=== PATIENT | male | born 1995 | race African-American/Black ===

== ENCOUNTER 2017-02-22 16:41 | Inpatient (IN) | payer MEDICAID ==
[~2017-02-22] VITALS: Ht 172.7 cm; Wt 68.1 kg
[2017-02-22 16:44] VITALS: BP 127/77; PULSE 128; RESP 20; TEMP 98.9; O2SAT 99
--- NOTE | 2017-02-22 17:34 | PD ---
HPI Chief Complaint: Psychiatric Symptoms Time Seen by Provider: 17:18 Travel History International Travel<30 days: No Contact w/Intl Traveler<30days: No Traveled to known affect area: No History of Present Illness HPI 21 yr male presents to emergency department with his mother stating that "he was healed of his diabetes". Mother states that patient threw away his glucose pump yesterday because he is healed. Patient states that the pump was broken and subsequently threw this away. Patient was reluctant to answer any of my questions. Apparently patient was admitted for DKA February 06 at [facility]. Patient has followed up with his front edger, Dr. Barrow since then. Patient denies fever, chills, chest pain, short of breath , abdominal pain, nausea, vomiting, diarrhea. Patient says "he feels fine" and would like to leave. PFSH Past Medical History Diabetes: Yes Social History Tobacco Use: No Allergies-Medications (Allergen,Severity, Reaction): Coded Allergies: No Known Allergies (Verified Allergy, Unknown, 02/22/17) Reported Meds & Prescriptions Reported Meds & Active Scripts Active Reported Prilosec (Omeprazole Magnesium) 10 Mg Pow Unknown Dose PO DAILY PRN Sulfasalazine 500 Mg Tab 500 Mg PO DAILY [Novolog] Unit SQ Review of Systems Except as stated in HPI: all other systems reviewed are Neg Physical Exam Narrative GENERAL: Well-nourished, well-developed patient. Mildly diaphoretic SKIN: Focused skin assessment warm/dry. HEAD: Normocephalic. EYES: No scleral icterus. No injection or drainage. NECK: Supple, trachea midline. No JVD. MUSCULOSKELETAL: No cyanosis, or edema. BACK: Nontender without obvious deformity. No CVA tenderness. PSYCHIATRIC: Patient claims they got spoke to him and told him that he no longer has diabetes. Mother states that patient has been making unusual remarks. Patient reluctant to allow any care from the hospital. Data Data Last Documented VS Vital Signs Date Time Temp Pulse Resp B/P (MAP) Pulse Ox O2 Delivery O2 Flow Rate FiO2 02/22/17 19:32 98.6 118 17 125/68 (87) 98 Room Air Orders Orders Rubber Press Tender / Telemetry [email or web address].Q8H (02/22/17 17:26) ^ Insert Iv (02/22/17 17:26) Diet Npo (02/22/17 Dinner) Complete Blood Count With Diff (02/22/17 17:26) Comprehensive Metabolic Panel (02/22/17 17:26) Beta Hydroxybutyrate (Acetone) (02/22/17 17:26) Hemoglobin (Hgb) A1c (02/22/17 17:26) Urinalysis - C+S If Indicated (02/22/17 17:26) Psych Screen (02/22/17 17:32) Restraints Non-Violent JAYME.Q3H (02/22/17 17:58) Blood Glucose (02/22/17 18:52) Rubber Press Tender / Telemetry [email or web address] (02/22/17 18:55) ^ Insert Iv (02/22/17 18:55) Magnesium (Mg) (02/22/17 18:55) Phosphorus (Po4) (02/22/17 18:55) Insulin Regular (Iv Infusion) (Novolin R (02/22/17 19:00) Potassium Chlor 20 Meq Premix (Kcl 20 Me (02/22/17 19:00) Potassium Chlor 20 Meq Premix (Kcl 20 Me (02/22/17 19:00) Potassium Chlor 20 Meq Premix (Kcl 20 Me (02/22/17 19:00) Potassium Chlor 20 Meq Premix (Kcl 20 Me (02/22/17 19:00) Sodium Chlor 0.9% 1000 Ml Inj (Ns 1000 M (02/22/17 19:16) Sodium Chlor 0.9% 1000 Ml Inj (Ns 1000 M (02/22/17 19:16) Dext 5%-Nacl 0.9% 1000 Ml Inj (D5w-Ns 10 (02/22/17 19:16) Insulin Human Regular Inj (Novolin R Inj (02/22/17 19:30) Insulin Regular (Iv Infusion) (Novolin R (02/22/17 19:30) Potassium Chlor 40 Meq Premix (Kcl 40 Me (02/22/17 19:30) Potassium Chlor 40 Meq Premix (Kcl 40 Me (02/22/17 19:30) Potassium Chlor 20 Meq Premix (Kcl 20 Me (02/22/17 19:30) Potassium Chlor 20 Meq Premix (Kcl 20 Me (02/22/17 19:30) Potassium Chlor 20 Meq Premix (Kcl 20 Me (02/22/17 19:30) Potassium Chlor 20 Meq Premix (Kcl 20 Me (02/22/17 19:30) Potassium Chlor 20 Meq Premix (Kcl 20 Me (02/22/17 19:30) Potassium Chlor 20 Meq Premix (Kcl 20 Me (02/22/17 19:30) Sodium Bicarbonate 8.4% Inj (Sodium Bica (02/22/17 19:30) Sodium Bicarbonate 8.4% Inj (Sodium Bica (02/22/17 19:30) Sodium Phosphate Inj (Sodium Phosphate I (02/22/17 19:30) Admit Order (Ed Use Only) (02/22/17 19:33) Labs Laboratory Tests Test 02/22/17 18:00 White Blood Count 14.6 TH/MM3 Red Blood Count 6.01 MIL/MM3 Hemoglobin 17.4 GM/DL Hematocrit 51.3 % Mean Corpuscular Volume 85.4 FL Mean Corpuscular Hemoglobin 28.9 PG Mean Corpuscular Hemoglobin Concent 33.9 % Red Cell Distribution Width 13.6 % Platelet Count 281 TH/MM3 Mean Platelet Volume 9.4 FL Neutrophils (%) (Auto) 70.2 % Lymphocytes (%) (Auto) 20.9 % Monocytes (%) (Auto) 7.5 % Eosinophils (%) (Auto) 0.9 % Basophils (%) (Auto) 0.5 % Neutrophils # (Auto) 10.2 TH/MM3 Lymphocytes # (Auto) 3.0 TH/MM3 Monocytes # (Auto) 1.1 TH/MM3 Eosinophils # (Auto) 0.1 TH/MM3 Basophils # (Auto) 0.1 TH/MM3 CBC Comment DIFF FINAL Differential Comment Blood Urea Nitrogen 16 MG/DL Creatinine 1.25 MG/DL Random Glucose 395 MG/DL Total Protein 8.6 GM/DL Albumin 4.5 GM/DL Calcium Level 9.8 MG/DL Alkaline Phosphatase 107 U/L Aspartate Amino Transf (AST/SGOT) 13 U/L Alanine Aminotransferase (ALT/SGPT) 23 U/L Total Bilirubin 2.0 MG/DL Sodium Level 131 MEQ/L Potassium Level 4.3 MEQ/L Chloride Level 97 MEQ/L Carbon Dioxide Level 20.9 MEQ/L Anion Gap 13 MEQ/L Estimat Glomerular Filtration Rate 89 ML/MIN Hemoglobin A1c 7.4 % Phosphorus Level 3.5 MG/DL Magnesium Level 1.9 MG/DL B-Hydroxybutyrate 3.40 MMOL/L MDM Medical Decision Making Medical Screen Exam Complete: Yes Emergency Medical Condition: Yes Differential Diagnosis Delirium versus DKA versus metabolic disturbance versus hyperglycemia Narrative Course 21 year male presents to emergency department with his mother. She was concerned that he is having a diabetic emergency. Patient was seen at [facility] on February 06 with DKA. He apparently threw away his insulin pump because he thought he was healed of diabetes. Denies SI/HI. He has not eaten today. Patient's front edger is Dr. Barrow. Vital signs- tachycardia Because patient refused care and we are concerned for his safety and well-being patient. Servin Act initiated in the hospital. I spoke with my attending, Dr. Ham regarding this patient. Laboratory Tests 02/22/17 18:00 Total Protein 8.6, Albumin 4.5, Calcium Level 9.8, Alkaline Phosphatase 107, Aspartate Amino Transf (AST/SGOT) 13, Alanine Aminotransferase (ALT/SGPT) 23, Total Bilirubin 2.0 Test 02/22/17 18:00 B-Hydroxybutyrate 3.40 MMOL/L Patient is hyperglycemic, has not had insulin in approximate 24 hours. Pt is developing DKA and will be admitted. Please see Dr. Ham's note for more information. Diagnosis Primary Impression: DKA (diabetic ketoacidoses) Qualified Codes: E10.10 - Type 1 diabetes mellitus with ketoacidosis without coma Condition: Stable Lilia Handy Feb 22, 2017 17:34
[2017-02-22 18:16] LABS: AUTOMATED NEUTROPHIL # 10.2 TH/MM3 (1.8-7.7); BASOPHIL # 0.1 TH/MM3 (0-0.2); BASOPHIL % 0.5 % (0.0-2.0); EOSINOPHIL # 0.1 TH/MM3 (0-0.4); EOSINOPHIL % 0.9 % (0.0-4.0); HEMATOCRIT 51.3 % (39.0-51.0); HEMO FLAGS DIFF FINAL; LYMPH % 20.9 % (9.0-44.0); MEAN CELL VOLUME 85.4 FL (80.0-100.0); MEAN CORPUSCULAR HEMOGLOBIN 28.9 PG (27.0-34.0); MEAN CORPUSCULAR HGB CONC 33.9 % (32.0-36.0); MONO % 7.5 % (0.0-8.0); NEUT % 70.2 % (16.0-70.0); PLATELET COUNT 281 TH/MM3 (150-450); RED BLOOD COUNT 6.01 MIL/MM3 (4.50-5.90); RED CELL DISTRIBUTION WIDTH 13.6 % (11.6-17.2); WHITE BLOOD COUNT 14.6 TH/MM3 (4.0-11.0)
[2017-02-22] MEDS ORDERED: [UNRECOGNIZED DRUG - OTHER] SQ (18:18)
[2017-02-22] MEDS ORDERED: OMEP10SU PO (18:18)
[2017-02-22] MEDS ORDERED: SULF500T3 PO (18:18)
[2017-02-22 18:46] LABS: ALT (GPT) 23 U/L (9-52)
[2017-02-22 18:48] LABS: ALKALINE PHOSPHATASE 107 U/L (45-117)
[2017-02-22 18:53] LABS: ANION GAP 13 MEQ/L (5-15); AST (GOT) 13 U/L (15-39); BICARBONATE 20.9 MEQ/L (21.0-32.0); BLOOD UREA NITROGEN 16 MG/DL (7-18); CHLORIDE 97 MEQ/L (98-107); GLOMERULAR FILTRATION RATE 89 ML/MIN (>89); POTASSIUM 4.3 MEQ/L (3.5-5.1); SODIUM (NA) 131 MEQ/L (136-145)
[2017-02-22] MEDS ORDERED: POTASSIUM CHLOR 20 MEQ PREMIX 100 ML IV PRN ×10 (19:00→19:30)
[2017-02-22] MEDS ORDERED: INSULIN REGULAR (IV INFUSION) 100 UNITS in SODIUM CHLORIDE 0.9% INJ 99 ML IV PRN ×2 (19:00→19:30)
[2017-02-22] MEDS ORDERED: DEXT 5%-NACL 0.9% 1000 ML INJ 1,000 ML IV SCH (19:16)
[2017-02-22] MEDS ORDERED: SODIUM CHLOR 0.9% 1000 ML INJ 1,000 ML IV SCH (19:16)
--- NOTE | 2017-02-22 19:22 | PD ---
Data Data Last Documented VS Vital Signs Date Time Temp Pulse Resp B/P (MAP) Pulse Ox O2 Delivery O2 Flow Rate FiO2 02/22/17 19:32 98.6 118 17 125/68 (87) 98 Room Air Orders Orders Credit Verifier / Telemetry [email or web address] (02/22/17 17:26) ^ Insert Iv (02/22/17 17:26) Diet Npo (02/22/17 Dinner) Complete Blood Count With Diff (02/22/17 17:26) Comprehensive Metabolic Panel (02/22/17 17:26) Beta Hydroxybutyrate (Acetone) (02/22/17 17:26) Hemoglobin (Hgb) A1c (02/22/17 17:26) Urinalysis - C+S If Indicated (02/22/17 17:26) Psych Screen (02/22/17 17:32) Restraints Non-Violent [email or web address].Q3H (02/22/17 17:58) Blood Glucose (02/22/17 18:52) Credit Verifier / Telemetry [email or web address] (02/22/17 18:55) ^ Insert Iv (02/22/17 18:55) Magnesium (Mg) (02/22/17 18:55) Phosphorus (Po4) (02/22/17 18:55) Insulin Regular (Iv Infusion) (Novolin R (02/22/17 19:00) Potassium Chlor 20 Meq Premix (Kcl 20 Me (02/22/17 19:00) Potassium Chlor 20 Meq Premix (Kcl 20 Me (02/22/17 19:00) Potassium Chlor 20 Meq Premix (Kcl 20 Me (02/22/17 19:00) Potassium Chlor 20 Meq Premix (Kcl 20 Me (02/22/17 19:00) Credit Verifier / Telemetry [email or web address] (02/22/17 19:16) ^ Insert Iv (02/22/17 19:16) Diet Npo (02/23/17 Breakfast) Sodium Chlor 0.9% 1000 Ml Inj (Ns 1000 M (02/22/17 19:16) Sodium Chlor 0.9% 1000 Ml Inj (Ns 1000 M (02/22/17 19:16) Dext 5%-Nacl 0.9% 1000 Ml Inj (D5w-Ns 10 (02/22/17 19:16) Insulin Human Regular Inj (Novolin R Inj (02/22/17 19:30) Insulin Regular (Iv Infusion) (Novolin R (02/22/17 19:30) Potassium Chlor 40 Meq Premix (Kcl 40 Me (02/22/17 19:30) Potassium Chlor 40 Meq Premix (Kcl 40 Me (02/22/17 19:30) Potassium Chlor 20 Meq Premix (Kcl 20 Me (02/22/17 19:30) Potassium Chlor 20 Meq Premix (Kcl 20 Me (02/22/17 19:30) Potassium Chlor 20 Meq Premix (Kcl 20 Me (02/22/17 19:30) Potassium Chlor 20 Meq Premix (Kcl 20 Me (02/22/17 19:30) Potassium Chlor 20 Meq Premix (Kcl 20 Me (02/22/17 19:30) Potassium Chlor 20 Meq Premix (Kcl 20 Me (02/22/17 19:30) Sodium Bicarbonate 8.4% Inj (Sodium Bica (02/22/17 19:30) Sodium Bicarbonate 8.4% Inj (Sodium Bica (02/22/17 19:30) Sodium Phosphate Inj (Sodium Phosphate I (02/22/17 19:30) Basic Metabolic Panel (Bmp) (02/23/17 00:16) Basic Metabolic Panel (Bmp) (02/23/17 06:16) Basic Metabolic Panel (Bmp) (02/23/17 12:16) Basic Metabolic Panel (Bmp) (02/23/17 18:16) Magnesium (Mg) (02/23/17 00:16) Magnesium (Mg) (02/23/17 06:16) Magnesium (Mg) (02/23/17 12:16) Magnesium (Mg) (02/23/17 18:16) Phosphorus (Po4) (02/23/17 00:16) Phosphorus (Po4) (02/23/17 06:16) Phosphorus (Po4) (02/23/17 12:16) Phosphorus (Po4) (02/23/17 18:16) Beta Hydroxybutyrate (Acetone) (02/23/17 06:16) Beta Hydroxybutyrate (Acetone) (02/23/17 18:16) Admit Order (Ed Use Only) (02/22/17 19:33) Labs Laboratory Tests Test 02/22/17 18:00 White Blood Count 14.6 TH/MM3 Red Blood Count 6.01 MIL/MM3 Hemoglobin 17.4 GM/DL Hematocrit 51.3 % Mean Corpuscular Volume 85.4 FL Mean Corpuscular Hemoglobin 28.9 PG Mean Corpuscular Hemoglobin Concent 33.9 % Red Cell Distribution Width 13.6 % Platelet Count 281 TH/MM3 Mean Platelet Volume 9.4 FL Neutrophils (%) (Auto) 70.2 % Lymphocytes (%) (Auto) 20.9 % Monocytes (%) (Auto) 7.5 % Eosinophils (%) (Auto) 0.9 % Basophils (%) (Auto) 0.5 % Neutrophils # (Auto) 10.2 TH/MM3 Lymphocytes # (Auto) 3.0 TH/MM3 Monocytes # (Auto) 1.1 TH/MM3 Eosinophils # (Auto) 0.1 TH/MM3 Basophils # (Auto) 0.1 TH/MM3 CBC Comment DIFF FINAL Differential Comment Blood Urea Nitrogen 16 MG/DL Creatinine 1.25 MG/DL Random Glucose 395 MG/DL Total Protein 8.6 GM/DL Albumin 4.5 GM/DL Calcium Level 9.8 MG/DL Alkaline Phosphatase 107 U/L Aspartate Amino Transf (AST/SGOT) 13 U/L Alanine Aminotransferase (ALT/SGPT) 23 U/L Total Bilirubin 2.0 MG/DL Sodium Level 131 MEQ/L Potassium Level 4.3 MEQ/L Chloride Level 97 MEQ/L Carbon Dioxide Level 20.9 MEQ/L Anion Gap 13 MEQ/L Estimat Glomerular Filtration Rate 89 ML/MIN B-Hydroxybutyrate 3.40 MMOL/L MDM Supervised Visit with CORY: Yes Narrative Course I, Dr. Ham, have reviewed the advance practice practitioner's documentation and am in agreement, met with the patient face to face, made the diagnosis, and the medical decision making was done by me. See her note for further details. Briefly this is a 21-year-old male with history of insulin dependent diabetes who is brought in by his mother for acting delusional and refusing to take his insulin. Patient told his mother that got has cured him of his diabetes and that he no longer needs his insulin. Patient denies suicidality. He was recently admitted earlier this month to another institution for DKA. The patient's mother is afraid that the patient will bounce back into DKA and may because of not taking his insulin. Patient is refusing labs, treatment, or care. I believe that the patient may be a harm to himself, and because of this he was placed under a Servin act by me. Lab work is consistent with mild DKA. DKA protocol initiated and the patient will be admitted to the medical service for medical treatment as well as psychiatric evaluation. The patient and the patient's mother were made aware of findings and plan of care. Case discussed with hospitalist Dr. Caldera who will admit the patient to her service. Critical Care Narrative Aggregate critical care time was 35 minutes. Time to perform other separately billable procedures was not included in the critical care time. My time did not include minutes spent treating any other patients simultaneously or on activities that did not directly contribute to the patient's treatment. The services I provided to this patient were to treat and/or prevent clinically significant deterioration that could result in: , progressive disability, worsening clinical condition I provided critical care services requiring my management, as noted below: Chart data review, documentation time, medication orders and management, vital sign assessments/reviewing monitor data, ordering and reviewing lab tests, ordering and interpreting/reviewing x-rays and diagnostic studies, care of the patient and discussion of the patient with the admitting physicians. Diagnosis Primary Impression: DKA (diabetic ketoacidoses) Qualified Codes: E10.10 - Type 1 diabetes mellitus with ketoacidosis without coma Additional Impression: Delusional thoughts Admitting Information Admitting Physician Requests: Admit Condition: Stable Garrett Ham MD Feb 22, 2017 19:22
[2017-02-22] MEDS ORDERED: SODIUM BICARBONATE 8.4% SOLN 50 MEQ/50 ML VIAL IV PUSH PRN ×2 (19:30)
[2017-02-22] MEDS ORDERED: SODIUM PHOSPHATE INJ 15 MMOL in SODIUM CHLORIDE 0.9% INJ 100 ML IV PRN (19:30)
[2017-02-22] MEDS ORDERED: INSULIN HUMAN REGULAR 1,000 UNITS/10 ML VIAL IV PUSH ONE (19:30)
[2017-02-22] MEDS ORDERED: POTASSIUM CHLOR 40 MEQ PREMIX 100 ML IV PRN ×2 (19:30)
[2017-02-22] MEDS: SODIUM CHLOR 0.9% 1000 ML INJ 1,000 ML IV SCH ×3 (19:31→22:45)
[2017-02-22 19:32] VITALS: BP 125/68; PULSE 118; RESP 17; TEMP 98.6; O2SAT 98
--- NOTE | 2017-02-22 19:44 | HHI.HP ---
HPI Service [facility] Primary Care Physician Unknown Admission Diagnosis DKA, delusional thoughts Diagnoses: (1) DKA (diabetic ketoacidoses) Diagnosis: Principal (2) Non-compliance Diagnosis: Principal (3) Delusional thoughts Diagnosis: Principal (4) Leukocytosis Diagnosis: Principal Travel History International Travel<30 Days: No Contact w/Intl Traveler <30 Da: No Traveled to Known Affected Are: No History of Present Illness This is a 21-year-old male with a PMH of DM was brought to the ER by his Mother as patient stopped taking his medications. Per Mother, patient claims he has been "healed by God" and threw away his Insulin Pump yesterday. States he has been non-compliant w/ his medications and recent admit to [facility] 02/06/17 for DKA. Pt provides minimal history. Pt under Servin Act by ER physician. On arrival, BP 127/77, HR 128, O2 sat 99% on RA, Afebrile. WBC 14.6. Hemoglobin 17.4. BS 395. CO2 20.9. Beta hydroxy 3.4. Started on DKA Protocol in ER. Review of Systems Except as stated in HPI: all other systems reviewed are Neg ROS: Unable to obtain as patient uncooperative with questions Past Family Social History Past Medical History PMH: DM Past Surgical History PAST SURGICAL HISTORY: Tonsillectomy, Hernia Repair Allergies: Coded Allergies: No Known Allergies (Verified Allergy, Unknown, 02/22/17) Family History PAST FAMILY HISTORY: Reviewed, positive for DM. Social History PAST SOCIAL HISTORY: Negative for alcohol, tobacco or drugs. Physical Exam Vital Signs Vital Signs Date Time Temp Pulse Resp B/P (MAP) Pulse Ox O2 Delivery O2 Flow Rate FiO2 02/22/17 19:32 98.6 118 17 125/68 (87) 98 Room Air 02/22/17 16:44 98.9 128 20 127/77 (94) 99 Physical Exam PE: GENERAL: Young male in no acute distress. Flat affect, minimally cooperative w / questions/exam. HEENT: PERRLA, EOMI. No scleral icterus or conjunctival pallor. No lid lag or facial droop. CARDIOVASCULAR: Regular rate and rhythm. No obvious murmurs to auscultation. No chest tenderness to palpation. RESPIRATORY: No obvious rhonchi or wheezing. Clear to auscultation. Breath sounds equal bilaterally. GASTROINTESTINAL: Abdomen soft, non-tender, nondistended. BS normal. MUSCULOSKELETAL: Extremities without clubbing, cyanosis, or edema. No obvious deformities. NEUROLOGICAL: Awake, alert. No focal neurologic deficits. Moving both upper and lower extremities spontaneously. Laboratory Laboratory Tests Test 02/22/17 18:00 White Blood Count 14.6 Red Blood Count 6.01 Hemoglobin 17.4 Hematocrit 51.3 Mean Corpuscular Volume 85.4 Mean Corpuscular Hemoglobin 28.9 Mean Corpuscular Hemoglobin Concent 33.9 Red Cell Distribution Width 13.6 Platelet Count 281 Mean Platelet Volume 9.4 Neutrophils (%) (Auto) 70.2 Lymphocytes (%) (Auto) 20.9 Monocytes (%) (Auto) 7.5 Eosinophils (%) (Auto) 0.9 Basophils (%) (Auto) 0.5 Neutrophils # (Auto) 10.2 Lymphocytes # (Auto) 3.0 Monocytes # (Auto) 1.1 Eosinophils # (Auto) 0.1 Basophils # (Auto) 0.1 CBC Comment DIFF FINAL Differential Comment Blood Urea Nitrogen 16 Creatinine 1.25 Random Glucose 395 Total Protein 8.6 Albumin 4.5 Calcium Level 9.8 Alkaline Phosphatase 107 Aspartate Amino Transf (AST/SGOT) 13 Alanine Aminotransferase (ALT/SGPT) 23 Total Bilirubin 2.0 Sodium Level 131 Potassium Level 4.3 Chloride Level 97 Carbon Dioxide Level 20.9 Anion Gap 13 Estimat Glomerular Filtration Rate 89 B-Hydroxybutyrate 3.40 Result Diagram: 02/22/17 1800 02/22/17 1800 Caprini VTE Risk Assessment Caprini VTE Risk Assessment: No/Low Risk (score <= 1) Caprini Risk Assessment Model Point Value = 1 Point Value = 2 Point Value = 3 Point Value = 5 Age 41-60 Minor surgery BMI > 25 kg/m2 Swollen legs Varicose veins or History of unexplained or recurrent spontaneous Oral contraceptives or hormone replacement Sepsis (< 1 month) Serious lung disease, including pneumonia (< 1 month) Abnormal pulmonary function Acute myocardial infarction Congestive heart failure (< 1 month) History of inflammatory bowel disease Medical patient at bed rest Age 61-74 Arthroscopic surgery Major open surgery (> 45 min) Laparoscopic surgery (> 45 min) Malignancy Confined to bed (> 72 hours) Immobilizing plaster cast Central venous access Age >= 75 History of VTE Family history of VTE Factor V Leiden Prothrombin [id number] Lupus anticoagulant Anticardiolipin antibodies Elevated serum homocysteine Heparin-induced thrombocytopenia Other congenital or acquired thrombophilia Stroke (< 1 month) Elective arthroplasty Hip, pelvis, or leg fracture Acute spinal cord injury (< 1 month) Prophylaxis Regimen Total Risk Factor Score Risk Level Prophylaxis Regimen 0-1 Low Early ambulation 2 Moderate Order ONE of the following: *Sequential Compression Device (SCD) *Heparin 5000 units SQ BID 3-4 Higher Order ONE of the following medications: *Heparin 5000 units SQ TID *Enoxaparin/Lovenox 40 mg SQ daily (WT < 150 kg, CrCl > 30 mL/min) *Enoxaparin/Lovenox 30 mg SQ daily (WT < 150 kg, CrCl > 10-29 mL/min) *Enoxaparin/Lovenox 30 mg SQ BID (WT < 150 kg, CrCl > 30 mL/min) AND/OR *Sequential Compression Device (SCD) 5 or more Highest Order ONE of the following medications: *Heparin 5000 units SQ TID (Preferred with Epidurals) *Enoxaparin/Lovenox 40 mg SQ daily (WT < 150 kg, CrCl > 30 mL/min) *Enoxaparin/Lovenox 30 mg SQ daily (WT < 150 kg, CrCl > 10-29 mL/min) *Enoxaparin/Lovenox 30 mg SQ BID (WT < 150 kg, CrCl > 30 mL/min) AND *Sequential Compression Device (SCD) Assessment and Plan Problem List: (1) DKA (diabetic ketoacidoses) ICD Code: E13.10 - Other specified diabetes mellitus with ketoacidosis without coma Status: Acute (2) Non-compliance ICD Code: Z91.19 - Patient's noncompliance with other medical treatment and regimen (3) Delusional thoughts ICD Code: F22 - Delusional disorders Status: Acute (4) Leukocytosis ICD Code: D72.829 - Elevated white blood cell count, unspecified Assessment and Plan A/P: 1. DKA: BS 359, CO2 20, B-hydroxy 3.54, secondary to Non-Compliance w/ meds. Started on DKA Protocol in ER, will continue, transition to sliding scale once acute DKA resolved. 2. Non-Compliance: Per Mother, pt non-compliant w/ medications, threw away his Insulin pump. Pt minimally conversive/cooperative initially, now demanding to speak to Psychiatrist to have Servin Act lifted, refusing Accu-Cheks and Insulin gtt, refusing blood draws. Insulin gtt on hold as unsafe to continue without being able to assess Accu-Cheks. Extensive discussion w/ patient and Mother regarding issue of non-compliance in light of potentially life threatening medical condition and his refusal of care. Pt does not have capacity at this time to make decisions. Informed Mother that if pt continued to refuse medical treatment, we would need to proceed w/ more aggressive measures including restraints and IV medications to calm patient enough in order to allow us to give the proper medical care and treat his DKA. She is aware and agrees w/ this plan if need be. 3. Delusional Thoughts: Mother reports pt claims he was "healed by God" and no longer has diabetes. Currently under Servin Act by ER physician. Consult Psych. Sitreynaldo. 4. Leukocytosis: WBC 14.6. Likely secondary to acute DKA. Check U/a, CXR. 5. DVT Prophylaxis: SCD/Teds. 6. Social work for d/c planning as needed. 7. Case discussed w/ ER physician, RN and english faculty member at length. Physician Certification 2 Midnight Certification Type: Admission for Inpatient Services Order for Inpatient Services The services are ordered in accordance with Medicare regulations or non- Medicare payer requirements, as applicable. In the case of services not specified as inpatient-only, they are appropriately provided as inpatient services in accordance with the 2-midnight benchmark. Estimated LOS (days): 2 days is the estimated time the patient will need to remain in the hospital, assuming treatment plan goals are met and no additional complications. Post-Hospital Plan: Not yet determined Problem Qualifiers (1) DKA (diabetic ketoacidoses): Qualified Codes: E10.10 - Type 1 diabetes mellitus with ketoacidosis without coma Sandrine Caldera MD Feb 22, 2017 19:44
[2017-02-22] MEDS ORDERED: ACETAMINOPHEN 325 MG TAB PO PRN (19:45)
[2017-02-22] MEDS ORDERED: MAGNESIUM HYDROXIDE SUSP 30 ML CUP PO PRN (19:45)
[2017-02-22] MEDS ORDERED: SENNOSIDES 8.6 MG TAB PO PRN (19:45)
[2017-02-22] MEDS ORDERED: BISACODYL 10 MG SUPP RECTAL PRN (19:45)
[2017-02-22] MEDS ORDERED: ONDANSETRON HCL 4 MG/2 ML VIAL IVP PRN (19:45)
[2017-02-22] MEDS ORDERED: LACTULOSE SYRUP 20 GM/30 ML CUP PO PRN (19:45)
[2017-02-22] MEDS: DOCUSATE SODIUM 50 MG/SENNA 8.6 MG TAB PO SCH (21:00)
[2017-02-22] MEDS ORDERED: LORazepam 2 MG/ML VIAL IV PUSH PRN (21:30)
[2017-02-22 21:53] LABS: HEMOGLOBIN A1a 0.9 %; HEMOGLOBIN A1b 2.3 %; HEMOGLOBIN Ao 79.7 %; HEMOGLOBIN P3 4.8 %
[2017-02-22 21:54] LABS: MAGNESIUM 1.9 MG/DL (1.5-2.5)
[2017-02-22] MEDS ORDERED: GLUCAGON 1 MG/ML VIAL OTHER PRN (22:30)
[2017-02-22] MEDS ORDERED: DEXTROSE 50% IN WATER 50 ML VIAL(D50) IV PUSH PRN (22:30)
[2017-02-22 22:31] LABS: BICARBONATE 23.4 MEQ/L (21.0-32.0)
[2017-02-22 23:00] VITALS: BP 118/72; PULSE 110; RESP 20; TEMP 98.8; O2SAT 99
[2017-02-22 23:44] VITALS: BP 118/72; PULSE 110; RESP 20; TEMP 98.8; O2SAT 99
[2017-02-23] VITALS (10 sets, daily range): BP systolic 110–126; BP diastolic 62–80; PULSE 65–113; RESP 12–19; TEMP 98.3–98.5; O2SAT 95–98
[2017-02-23] MEDS ORDERED: INSULIN ASPART 1,000 UNITS/10 ML VIAL SQ ONE (01:00)
[2017-02-23] MEDS: SODIUM CHLOR 0.9% 1000 ML INJ 1,000 ML IV SCH ×2 (05:38→18:45)
[2017-02-23 06:44] LABS: AUTOMATED NEUTROPHIL # 4.8 TH/MM3 (1.8-7.7); BASOPHIL % 0.4 % (0.0-2.0); EOSINOPHIL # 0.2 TH/MM3 (0-0.4); EOSINOPHIL % 2.4 % (0.0-4.0); HEMATOCRIT 42.5 % (39.0-51.0); HEMO FLAGS DIFF FINAL; LYMPH % 23.8 % (9.0-44.0); LYMPHOCYTE # 1.8 TH/MM3 (1.0-4.8); MEAN CELL VOLUME 83.8 FL (80.0-100.0); MEAN CORPUSCULAR HEMOGLOBIN 28.1 PG (27.0-34.0); MEAN CORPUSCULAR HGB CONC 33.6 % (32.0-36.0); MONO % 8.5 % (0.0-8.0); NEUT % 64.9 % (16.0-70.0); PLATELET COUNT 200 TH/MM3 (150-450); RED BLOOD COUNT 5.07 MIL/MM3 (4.50-5.90); RED CELL DISTRIBUTION WIDTH 13.7 % (11.6-17.2); WHITE BLOOD COUNT 7.4 TH/MM3 (4.0-11.0)
[2017-02-23 07:19] LABS: POTASSIUM 3.9 MEQ/L (3.5-5.1)
[2017-02-23] MEDS: INSULIN ASPART SUPPLEMENTAL SCALE SQ SCH ×4 (08:09→21:00)
[2017-02-23] MEDS: INSULIN DETEMIR 100 UNITS/ML VIAL SQ SCH ×2 (09:00→21:00)
[2017-02-23] MEDS: DOCUSATE SODIUM 50 MG/SENNA 8.6 MG TAB PO SCH ×2 (09:00→21:00)
[2017-02-23] MEDS: INSULIN ASPART 1,000 UNITS/10 ML VIAL SQ SCH ×2 (12:00→17:00)
--- NOTE | 2017-02-23 12:39 | HHI.PR ---
Subjective Remarks Follow-up for DKA in a patient with type 1 diabetes. Mr. Soto is currently doing well. Denies any chest pain, shortness of breath, fever or chills. He denies any suicidal or homicidal ideations. He wants to go home. Objective Vitals Vital Signs Date Time Temp Pulse Resp B/P (MAP) Pulse Ox O2 Delivery O2 Flow Rate FiO2 02/23/17 10:00 108 02/23/17 08:00 108 02/23/17 08:00 98.3 111 12 126/80 (95) 98 02/23/17 07:00 Room Air 02/23/17 06:00 95 02/23/17 04:00 98.3 104 17 115/75 (88) 98 02/23/17 04:00 104 02/23/17 02:00 107 02/23/17 00:00 113 02/22/17 23:44 98.8 110 20 118/72 (87) 99 02/22/17 23:00 100 Room Air 02/22/17 19:32 98.6 118 17 125/68 (87) 98 Room Air 02/22/17 16:44 98.9 128 20 127/77 (94) 99 I/O 02/22/17 02/22/17 02/22/17 02/23/17 02/23/17 02/23/17 07:00 15:00 23:00 07:00 15:00 23:00 Intake Total 1800 ml 1686 ml Output Total 1100 ml Balance 1800 ml 586 ml Intake Oral 240 ml IV Total 1800 ml 1446 ml Output Urine Total 1100 ml # Bowel Movements 0 Result Diagram: 02/23/17 0548 02/23/17 0548 Objective Remarks GENERAL: Alert, oriented 3, NAD. SKIN: Warm and dry. HEAD: Normocephalic. EYES: No scleral icterus. No injection or drainage. NECK: Supple, trachea midline. No JVD or lymphadenopathy. CARDIOVASCULAR: Regular rate and rhythm without murmurs, gallops, or rubs. RESPIRATORY: Breath sounds equal bilaterally. No accessory muscle use. GASTROINTESTINAL: Abdomen soft, non-tender, nondistended. MUSCULOSKELETAL: No cyanosis, or edema. BACK: Nontender without obvious deformity. No CVA tenderness. Procedures None A/P Problem List: (1) DKA (diabetic ketoacidoses) ICD Code: E13.10 - Other specified diabetes mellitus with ketoacidosis without coma Status: Acute (2) Non-compliance ICD Code: Z91.19 - Patient's noncompliance with other medical treatment and regimen (3) Delusional thoughts ICD Code: F22 - Delusional disorders Status: Acute (4) Leukocytosis ICD Code: D72.829 - Elevated white blood cell count, unspecified Assessment and Plan Mr. Soto is a 21 year old male with a history of type 1 DM, DKA. Patient apparently said he has been healed by God and threw his insulin pump away. On , during our interview, patient denies any suicidal or homicidal ideations. Patient understands the implication of not taking insulin. He appears to have capacity to make medical decisions. - Diabetic ketoacidosis - Type 1 diabetes mellitus - Resolved. He is not on insulin drip anymore. - Start Levemir 10 units twice a day, insulin aspart 5 units 3 times a day before meals, sliding scale insulin. - Discussed with psychiatry. If perkins act is lifted, patient can leave against medical advice. - Delusional thoughts - He has not shown any evidence today that indicates delusional thoughts. We will wait for psychiatry evaluation. Full code. Problem Qualifiers (1) DKA (diabetic ketoacidoses): Qualified Codes: E10.10 - Type 1 diabetes mellitus with ketoacidosis without coma Bud Zaman DO Feb 23, 2017 12:39 pm
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
[2017-02-23] MEDS ORDERED: NOVOLOGP2 SQ ×2 (14:43)
[2017-02-23] MEDS ORDERED: LEVEMIR SQ (14:43)
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
[2017-02-24] VITALS (8 sets, daily range): BP systolic 97–119; BP diastolic 55–64; PULSE 82–101; RESP 16–20; TEMP 98.5–98.7; O2SAT 94–95
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
[2017-02-24] MEDS: INSULIN ASPART 1,000 UNITS/10 ML VIAL SQ SCH ×2 (08:00→12:00)
--- NOTE | 2017-02-24 08:34 | HHI.PR ---
Subjective Remarks Follow-up for DKA in a patient with type 1 diabetes. Patient is sleeping but wakes up on verbal commands. Denies any acute concerns. He left the hospital last night. However, his family brought him back. Objective Vitals Vital Signs Date Time Temp Pulse Resp B/P (MAP) Pulse Ox O2 Delivery O2 Flow Rate FiO2 02/24/17 06:00 95 02/24/17 04:00 89 02/24/17 04:00 89 16 97/55 (69) 02/24/17 02:00 101 02/24/17 00:59 93 18 102/64 (77) 02/24/17 00:58 93 02/23/17 20:00 109 19 02/23/17 19:00 Room Air 02/23/17 18:00 108 02/23/17 16:00 98.4 102 18 126/72 (90) 02/23/17 16:00 108 02/23/17 12:00 98.5 65 16 110/62 (78) 95 02/23/17 12:00 98.5 96 16 110/62 (78) 95 02/23/17 12:00 108 02/23/17 10:00 108 I/O 02/23/17 02/23/17 02/23/17 02/24/17 02/24/17 02/24/17 07:00 15:00 23:00 07:00 15:00 23:00 Intake Total 1686 ml 1280 ml 240 ml Output Total 1100 ml 2200 ml Balance 586 ml -920 ml 240 ml Intake Oral 240 ml 1280 ml 240 ml IV Total 1446 ml Output Urine Total 1100 ml 2200 ml # Voids 3 # Bowel Movements 0 2 Result Diagram: 02/23/1748 02/23/17 0548 Objective Remarks GENERAL: Alert, oriented 3, NAD. SKIN: Warm and dry. HEAD: Normocephalic. EYES: No scleral icterus. No injection or drainage. NECK: Supple, trachea midline. No JVD or lymphadenopathy. CARDIOVASCULAR: Regular rate and rhythm without murmurs, gallops, or rubs. RESPIRATORY: Breath sounds equal bilaterally. No accessory muscle use. GASTROINTESTINAL: Abdomen soft, non-tender, nondistended. MUSCULOSKELETAL: No cyanosis, or edema. BACK: Nontender without obvious deformity. No CVA tenderness. Procedures None A/P Problem List: (1) DKA (diabetic ketoacidoses) ICD Code: E13.10 - Other specified diabetes mellitus with ketoacidosis without coma Status: Acute (2) Non-compliance ICD Code: Z91.19 - Patient's noncompliance with other medical treatment and regimen (3) Delusional thoughts ICD Code: F22 - Delusional disorders Status: Acute (4) Leukocytosis ICD Code: D72.829 - Elevated white blood cell count, unspecified Assessment and Plan Mr. Soto is a 21 year old male with a history of type 1 DM, DKA. Patient apparently said he has been healed by God and threw his insulin pump away. On , during our interview, patient denies any suicidal or homicidal ideations. Patient understands the implication of not taking insulin. He appears to have capacity to make medical decisions. - Diabetic ketoacidosis - Type 1 diabetes mellitus - Resolved. He is not on insulin drip anymore. - Continue Levemir 10 units twice a day, insulin aspart 5 units 3 times a day before meals, sliding scale insulin. - Adjust insulin as needed. Hospitalist service can be consulted after patient is admitted to psychiatry unit. - Delusional thoughts - He has not shown any evidence that indicates delusional thoughts. Appreciate psychiatry evaluation. Psychiatry is recommending psychiatry unit admission. Patient's family wants him to go to a psych unit in the [facility]. Given patient's elopement last night, we will make an effort to discharge him to psychiatry unit at [facility]. Patient is medically cleared to go to a psychiatric facility. Full code. Problem Qualifiers (1) DKA (diabetic ketoacidoses): Qualified Codes: E10.10 - Type 1 diabetes mellitus with ketoacidosis without coma Bud Zaman DO Feb 24, 2017 8:34 am
[2017-02-24] MEDS: INSULIN ASPART SUPPLEMENTAL SCALE SQ SCH (08:37)
[2017-02-24] MEDS: DOCUSATE SODIUM 50 MG/SENNA 8.6 MG TAB PO SCH (09:00)
--- NOTE | 2017-02-24 10:11 | PD.PN.STU ---
Subjective Remarks Patient states that he has no current problems and continually asks for discharge papers. States that he left the hospital last night because he wants to go home. He denies SI and HI. He continues to assert that his family is lying concerning his supposed delusions that his diabetes was cured and throwing away of his insulin pump. Objective Vitals Vital Signs Date Time Temp Pulse Resp B/P (MAP) Pulse Ox O2 Delivery O2 Flow Rate FiO2 02/24/17 08:00 98.5 82 20 112/59 (76) 94 02/24/17 08:00 89 02/24/17 07:00 Room Air 02/24/17 06:00 95 02/24/17 04:00 89 02/24/17 04:00 89 16 97/55 (69) 02/24/17 02:00 101 02/24/17 00:59 93 18 102/64 (77) 02/24/17 00:58 93 02/23/17 20:00 109 19 02/23/17 19:00 Room Air 02/23/17 18:00 108 02/23/17 16:00 98.4 102 18 126/72 (90) 02/23/17 16:00 108 02/23/17 12:00 98.5 65 16 110/62 (78) 95 02/23/17 12:00 98.5 96 16 110/62 (78) 95 02/23/17 12:00 108 02/23/17 10:00 108 I/O 02/23/17 02/23/17 02/23/17 02/24/17 02/24/17 02/24/17 07:00 15:00 23:00 07:00 15:00 23:00 Intake Total 1686 ml 1280 ml 240 ml Output Total 1100 ml 2200 ml Balance 586 ml -920 ml 240 ml Intake Oral 240 ml 1280 ml 240 ml IV Total 1446 ml Output Urine Total 1100 ml 2200 ml # Voids 3 # Bowel Movements 0 2 Result Diagram: 02/23/1754702/23/17 0548 Objective Remarks GENERAL: Lying in bed on side in no apparent distress. Awoken from sleep and appears drowsy during encounter. Intermittently closes eyes and only selectively answers questions. SKIN: Warm and dry. HEAD: Atraumatic. Normocephalic. EYES: Pupils equal and round. No scleral icterus. No injection or drainage. ENT: No nasal bleeding or discharge. Mucous membranes pink and moist. NECK: Trachea midline. No JVD. CARDIOVASCULAR: Regular rate and rhythm. RESPIRATORY: No accessory muscle use. Clear to auscultation. Breath sounds equal bilaterally. GASTROINTESTINAL: Abdomen soft, non-tender, nondistended. Hepatic and splenic margins not palpable. MUSCULOSKELETAL: Extremities without clubbing, cyanosis, or edema. No obvious deformities. NEUROLOGICAL: No obvious cranial nerve deficits. Motor grossly within normal limits. PSYCHIATRIC: Insight and judgement impaired. Denies SI/HI. Repeatedly asks for discharge papers despite explanations of his situation under the Servin act. Medications and IVs Current Medications Insulin Human Regular 100 units/ Sodium Chloride 100 ml @ 6 mls/hr TITRATE PRN IV Blood Sugar Management; Start 02/22/17 at 19:00; Stop 02/22/17 at 19:32; Status DC Potassium Chloride 100 ml @ 50 mls/hr Q2H PRN IV SEE LABEL COMMENTS; Start at 19:00; Stop 02/22/17 at 19:32; Status DC Potassium Chloride 100 ml @ 50 mls/hr Q2H PRN IV SEE LABEL COMMENTS; Start at 19:00; Stop 02/22/17 at 19:32; Status DC Potassium Chloride 100 ml @ 50 mls/hr Q2H PRN IV SEE LABEL COMMENTS; Start at 19:00; Stop 02/22/17 at 19:32; Status DC Potassium Chloride 100 ml @ 50 mls/hr Q2H PRN IV SEE LABEL COMMENTS; Start at 19:00; Stop 02/22/17 at 19:32; Status DC Sodium Chloride 1,000 ml @ 1,000 mls/hr Q1H IV Last administered on t 19:31; Start 02/22/17 at 19:16; Stop 02/22/17 at 21:15; Status DC Sodium Chloride 1,000 ml @ 250 mls/hr Q4H IV Last administered on 02/22/17t 19:50; Start 02/22/17 at 19:16; Stop 02/22/17 at 22:37; Status DC Dextrose/Sodium Chloride 1,000 ml @ 200 mls/hr Q5H IV ; Start 02/22/17 at 19: 16; Stop 02/22/17 at 22:36; Status DC Insulin Human Regular (NovoLIN R INJ) 6 units BOLUS ONCE IV PUSH Last administered on 02/22/17t 19:31; Start 02/22/17 at 19:30; Stop 02/22/17 at 22 :37; Status DC Insulin Human Regular 100 units/ Sodium Chloride 100 ml @ 600 mls/hr TITRATE PRN IV Blood Sugar Management Last administered on 02/22/17t 20:39; Start at 19:30; Stop 02/22/17 at 22:36; Status DC Potassium Chloride 100 ml @ 100 mls/hr Q1H PRN IV SEE LABEL COMMENTS; Start 02/22/17 at 19:30; Stop 02/22/17 at 22:37; Status DC Potassium Chloride 100 ml @ 50 mls/hr Q2H PRN IV SEE LABEL COMMENTS; Start at 19:30; Stop 02/22/17 at 22:37; Status DC Potassium Chloride 100 ml @ 100 mls/hr Q1H PRN IV SEE LABEL COMMENTS; Start 02/22/17 at 19:30; Stop 02/22/17 at 22:36; Status DC Potassium Chloride 100 ml @ 100 mls/hr Q1H PRN IV SEE LABEL COMMENTS; Start 02/22/17 at 19:30; Stop 02/22/17 at 22:37; Status DC Potassium Chloride 100 ml @ 50 mls/hr Q2H PRN IV SEE LABEL COMMENTS; Start at 19:30; Stop 02/22/17 at 22:37; Status DC Potassium Chloride 100 ml @ 50 mls/hr Q2H PRN IV SEE LABEL COMMENTS; Start at 19:30; Stop 02/22/17 at 22:37; Status DC Potassium Chloride 100 ml @ 50 mls/hr Q2H PRN IV SEE LABEL COMMENTS; Start at 19:30; Stop 02/22/17 at 22:37; Status DC Potassium Chloride 100 ml @ 50 mls/hr Q2H PRN IV SEE LABEL COMMENTS; Start at 19:30; Stop 02/22/17 at 22:37; Status DC Sodium Bicarbonate (Sodium Bicarbonate 8.4% Inj) 100 meq UNSCH PRN IV PUSH SEE LABEL COMMENTS; Start 02/22/17 at 19:30; Stop 02/22/17 at 22:37; Status DC Sodium Bicarbonate (Sodium Bicarbonate 8.4% Inj) 50 meq UNSCH PRN IV PUSH SEE LABEL COMMENTS; Start 02/22/17 at 19:30; Stop 02/22/17 at 22:37; Status DC Sodium Phosphate 15 mmol/Sodium Chloride 105 ml @ 25 mls/hr UNSCH PRN IV SEE LABEL COMMENTS; Start 02/22/17 at 19:30; Stop 02/22/17 at 22:37; Status DC Ondansetron HCl (Zofran Inj) 4 mg Q6H PRN IVP NAUSEA OR VOMITING; Start at 19:45 Acetaminophen (Tylenol) 650 mg Q6H PRN PO FEVER/PAIN SCALE 1 TO 2; Start 02/22 at 19:45 Senna/Docusate Sodium (Patricia-Colace) 1 tab BID PO ; Start 02/22/17 at 21:00 Magnesium Hydroxide (Milk Of Magnesia Liq) 30 ml Q12H PRN PO Mild constipation ; Start 02/22/17 at 19:45 Sennosides (Senokot) 17.2 mg Q12H PRN PO Moderate constipation; Start at 19:45 Bisacodyl (Dulcolax Supp) 10 mg DAILY PRN RECTAL SEVERE CONSITIPATION; Start 02/22/17 at 19:45 Lactulose (Lactulose Liq) 30 ml DAILY PRN PO SEVERE CONSITIPATION; Start 02/22 at 19:45 Lorazepam (Ativan Inj) 1 mg Q15M PRN IV PUSH AGITATION Last administered on 21:48; Start 02/22/17 at 21:30 Dextrose (D50w (Vial) Inj) 50 ml UNSCH PRN IV PUSH HYPOGLYCEMIA-SEE COMMENTS; Start 02/22/17 at 22:30 Glucagon (Glucagon Inj) 1 mg UNSCH PRN OTHER HYPOGLYCEMIA-SEE COMMENTS; Start 02/22/17 at 22:30 Insulin Aspart (NovoLOG SUPPLEMENTAL SCALE) 1 ACHS SLIDING SCALE SQ Last administered on 02/24/17 08:37; Start 02/23/17 at 08:00 Sodium Chloride 1,000 ml @ 100 mls/hr Q10H IV Last administered on 02/23/17 18:45; Start 02/22/17 at 22:45 Insulin Aspart (NovoLOG INJ) 3 units ONCE ONCE SQ Last administered on 02:02; Start 02/23/17 at 01:00; Stop 02/23/17 at 01:01; Status DC Insulin Detemir (Levemir Inj) 10 units Q12HR SQ ; Start 02/23/17 at 09:00 Insulin Aspart (NovoLOG INJ) 5 units TIDAC SQ Last administered on 02/23/17 17:00; Start 02/23/17 at 12:00 A/P Assessment and Plan Patient is a 21 year old male who presented to the ED in DKA after apparently stating that he had been healed of his diabetes and throwing away his insulin pump. DKA on admission -anion gap now normal -glucose continues to decrease, now on subQ insulin Possible psychotic disorder with delusions, impaired insight, possible suicide attempt per family -r/o psychotic disorder, MDD with suicide attempt -patient left hospital last night but was recovered and now with sitter in room -psychiatry following and recommended further psychiatric care -patient now medically stable and can be arranged to be transferred to psychiatric service William Hicks M3 Feb 24, 2017 10:11
[2017-02-24] MEDS: INSULIN DETEMIR 100 UNITS/ML VIAL SQ SCH (10:23)
[2017-02-24] MEDS ORDERED: sulfaSALAzine 500 MG TAB PO SCH (15:00)
--- NOTE | 2017-02-25 09:39 | HHI.DS ---
Discharge Summary Admission Date Feb 22, 2017 at 7:35 pm Discharge Date: Feb 24, 2017 Admitting Diagnosis DKA, delusional thoughts (1) DKA (diabetic ketoacidoses) ICD Code: E13.10 - Other specified diabetes mellitus with ketoacidosis without coma Status: Acute (2) Non-compliance ICD Code: Z91.19 - Patient's noncompliance with other medical treatment and regimen (3) Delusional thoughts ICD Code: F22 - Delusional disorders Status: Acute (4) Leukocytosis ICD Code: D72.829 - Elevated white blood cell count, unspecified Procedures None Brief History - From Admission This is a 21-year-old male with a PMH of DM was brought to the ER by his Mother as patient stopped taking his medications. Per Mother, patient claims he has been "healed by God" and threw away his Insulin Pump yesterday. States he has been non-compliant w/ his medications and recent admit to [facility] 02/06/17 for DKA. Pt provides minimal history. Pt under Servin Act by ER physician. On arrival, BP 127/77, HR 128, O2 sat 99% on RA, Afebrile. WBC 14.6. Hemoglobin 17.4. BS 395. CO2 20.9. Beta hydroxy 3.4. Started on DKA Protocol in ER. CBC/BMP: 02/23/17 0548 02/23/17 0548 Significant Findings Laboratory Tests Test 02/22/17 18:00 02/22/17 21:45 02/22/17 22:20 02/23/17 05:48 White Blood Count 14.6 TH/MM3 (4.0-11.0) Red Blood Count 6.01 MIL/MM3 (4.50-5.90) Hemoglobin 17.4 GM/DL (13.0-17.0) Hematocrit 51.3 % (39.0-51.0) Neutrophils (%) (Auto) 70.2 % (16.0-70.0) Neutrophils # (Auto) 10.2 TH/MM3 (1.8-7.7) Monocytes # (Auto) 1.1 TH/MM3 (0-0.9) Random Glucose 395 MG/DL (74-106) 265 MG/DL (74-106) 214 MG/DL (74-106) Total Protein 8.6 GM/DL (6.4-8.2) Aspartate Amino Transf (AST/SGOT) 13 U/L (15-39) Total Bilirubin 2.0 MG/DL (0.2-1.0) Sodium Level 131 MEQ/L (136-145) Chloride Level 97 MEQ/L (98-107) Carbon Dioxide Level 20.9 MEQ/L (21.0-32.0) Hemoglobin A1c 7.4 % (4.3-6.0) B-Hydroxybutyrate 3.40 MMOL/L (0.00-0.39) Calcium Level 8.4 MG/DL (8.5-10.1) Monocytes (%) (Auto) 8.5 % (0.0-8.0) PE at Discharge GENERAL: Alert, oriented 3, NAD. SKIN: Warm and dry. HEAD: Normocephalic. EYES: No scleral icterus. No injection or drainage. NECK: Supple, trachea midline. No JVD or lymphadenopathy. CARDIOVASCULAR: Regular rate and rhythm without murmurs, gallops, or rubs. RESPIRATORY: Breath sounds equal bilaterally. No accessory muscle use. GASTROINTESTINAL: Abdomen soft, non-tender, nondistended. MUSCULOSKELETAL: No cyanosis, or edema. BACK: Nontender without obvious deformity. No CVA tenderness. Pt update on day of discharge Medically patient is doing well. However, he believes he is wrongfully servin acted. Also, his mother resisted the idea of her son going to [place] [facility]. We spent considerable amount of time coordinating with patient , family, case management, nurse barber or beauty shop manager, charge nurse to find a psychiatry facility for him. Per mother's wishes, CM contacted a facility in [place] but did not have a bed. [facility] did not feel it was appropriate for them to accept this patient with poorly controlled glucose (due to patient's refusal to take medications). I have spent more than 60 minutes to evaluate and coordinate care for this patient, at least 40 minutes were spent face to face with patient and his mother in the room. Hospital Course Mr. Soto is a 21 year old male with a history of type 1 DM, DKA. Patient apparently said he has been healed by God and threw his insulin pump away. On , during our interview, patient denies any suicidal or homicidal ideations. Patient understands the implication of not taking insulin. He appears to have capacity to make medical decisions. - Diabetic ketoacidosis - Type 1 diabetes mellitus - Resolved. He is not on insulin drip anymore. - Continue Levemir 10 units twice a day, insulin aspart 5 units 3 times a day before meals, sliding scale insulin. - Adjust insulin as needed. Hospitalist service can be consulted after patient is admitted to psychiatry unit. - Delusional thoughts - He has not shown any evidence that indicates delusional thoughts. Appreciate psychiatry evaluation. Psychiatry is recommending psychiatry unit admission. Patient's family wants him to go to a psych unit in the [facility]. Given patient's elopement last night, we will make an effort to discharge him to psychiatry unit at [place]. We did look into facilities in [place] as well as [facility]. Unfortunately, a bed could not be obtained at this time. After multiple discussion, patient's mother agreed for her son to go to [facility] [facility]. Patient is medically cleared to go to a psychiatric facility. Pt Condition on Discharge: Good Discharge Disposition: Disc to Psych Care Fac Discharge Time: > 30 minutes Discharge Instructions DIET: Follow Instructions for: Diabetic Diet Activities you can perform: Regular-No Restrictions New Medications: Insulin Aspart Inj (Novolog Inj) 1,000 Unit/10 Ml Vial 1-9 UNITS SQ ACHS for Blood Sugar Management, #10 ML 0 Refills Max dose at bedtime:( )units; sugars less than 70,(0)units; sugars 150-199,(1) unit; sugars 200-249,(3) units; sugars 250-299,(5) units; sugars 300-349,(7) units; sugars greater than 349,(9) units Insulin Aspart Inj (Novolog Inj) 1,000 Unit/10 Ml Vial 5 UNITS SQ TIDAC for Blood Sugar Management for 30 Days, INJECTION Insulin Detemir Inj (Levemir Inj) 1,000 unit/ 10 ML Vial 10 UNITS SQ Q12HR for Blood Sugar Management for 30 Days, INJECTION Do not mix with any other Insulin. Continued Medications: Omeprazole Magnesium (Prilosec) 10 Mg Pow Unknown Dose PO DAILY PRN for REFLUX Sulfasalazine (Sulfasalazine) 500 Mg Tab 500 MG PO DAILY, #120 TAB 0 Refills Discontinued Medications: [Novolog] () UNIT SQ Bud Zaman DO Feb 25, 2017 9:39 am
== END 2017-02-24 14:11 | DRG 639 ==
LOC: NEPD 16:41 → NEDA 19:35 → HIMN 22:25
PROVIDERS: ADMIT Hospitalist; ATTEND Hospitalist
DX: E10.10 Type 1 diabetes mellitus with ketoacidosis without coma (principal); F22 Delusional disorders; D72.829 Elevated white blood cell count, unspecified; R00.0 Tachycardia, unspecified; Z91.19 Patient's noncompliance with other medical treatment and regimen; Z91.14 Patient's other noncompliance with medication regimen; Z79.4 Long term (current) use of insulin
CPT/HCPCS: 80048; 80053; 82010; 82948; 83036; 83735; 84100; 85025; 87641; 96374; J1815; J1817; J2060; J7030

== ENCOUNTER 2017-02-24 14:21 | Inpatient (IN) | payer MEDICAID ==
[~2017-02-24] VITALS: Ht 180.3 cm; Wt 61.6 kg
[~2017-02-24 14:21] MED LIST: LEVEMIR SQ; NOVOLOGP2 SQ; OMEP10SU PO; SULF500T3 PO
[2017-02-24 15:11] VITALS: BP 125/67; PULSE 95; RESP 20; TEMP 98.3; O2SAT 98
[2017-02-24] MEDS ORDERED: ALUMINUM/MAGNESIUM/SIMETH 30 ML CUP PO PRN (16:00)
[2017-02-24] MEDS ORDERED: LORazepam 1 MG TAB PO PRN (16:00)
[2017-02-24] MEDS ORDERED: GLUCAGON 1 MG/ML VIAL OTHER PRN (16:00)
[2017-02-24] MEDS ORDERED: BENZTROPINE MESYLATE 1 MG TAB PO PRN (16:00)
[2017-02-24] MEDS ORDERED: BENZTROPINE MESYLATE 2 MG/2 ML VIAL IM PRN (16:00)
[2017-02-24] MEDS ORDERED: NICOTINE 21 MG/24 HR PATCH T-DERMAL PRN (16:00)
[2017-02-24] MEDS ORDERED: ACETAMINOPHEN 325 MG TAB PO PRN (16:00)
[2017-02-24] MEDS ORDERED: diphenhydrAMINE HCL 50 MG CAP PO PRN (16:00)
[2017-02-24] MEDS ORDERED: LORazepam 2 MG/ML VIAL IM PRN (16:00)
[2017-02-24] MEDS ORDERED: MAGNESIUM HYDROXIDE SUSP 30 ML CUP PO PRN (16:00)
[2017-02-24] MEDS ORDERED: DEXTROSE 50% IN WATER 50 ML VIAL(D50) IV PUSH PRN (16:00)
[2017-02-24] MEDS: INSULIN ASPART 1,000 UNITS/10 ML VIAL SQ SCH (17:42)
[2017-02-24] MEDS: INSULIN ASPART SUPPLEMENTAL SCALE SQ SCH ×2 (17:42→20:48)
[2017-02-24] MEDS ORDERED: INSULIN DETEMIR 100 UNITS/ML VIAL SQ SCH (21:00)
[2017-02-25 06:14] VITALS: BP 108/60; PULSE 85; RESP 16; TEMP 97.3; O2SAT 100
[2017-02-25] MEDS: INSULIN ASPART 1,000 UNITS/10 ML VIAL SQ SCH ×3 (08:00→17:00)
[2017-02-25] MEDS: INSULIN ASPART SUPPLEMENTAL SCALE SQ SCH ×4 (08:00→21:06)
--- NOTE | 2017-02-25 08:37 | PD.CONS ---
HPI Service [facility] Hospitalists Consult Requested By Psychiatry Reason for Consult Medical management Primary Care Physician Unknown Diagnoses: (1) Ulcerative colitis (2) Diabetes mellitus (3) Adjustment disorder History of Present Illness Mr. Soto is a 21-year-old male with a history of ulcerative colitis, diabetes mellitus who underwent treatment for DKA and subsequently discharged to [place] psychiatric unit for further evaluation and treatment. Patient was originally brought to ER on 02/22/2017 by his Mother as patient stopped taking his medications. Per Mother, patient claimed he has been "healed by God" and threw away his Insulin Pump. Patient was Servin Acted by ER provider. Patient was treated for DKA in the ICU and was evaluated by Psychiatry who recommended in-patient psychiatry admission. Although patient's mother preferred to take her son to a facility in [place] or [facility], such and management was not feasible due to bed unavailability. After multiple discussions with patient and patient's mother, patient was discharged to inpatient psych facility within [place]. At the time of this interview, patient has flat affect and continues to desire to go home. His tolerating diet well. He received long-acting insulin last night. Review of Systems Except as stated in HPI: all other systems reviewed are Neg Past Family Social History Allergies: Coded Allergies: No Known Allergies (Verified Allergy, Unknown, 02/22/17) Past Medical History Diabetes mellitus type 1 Ulcerative colitis Past Surgical History Tonsillectomy, hernia repair Reported Medications Current Medications Medications (Trade) Dose Ordered Sig/Baldev Route Start Time Stop Time Status Last Admin (Azulfidine) 500 mg DAILY PO 02/25/17 09:00 (NovoLOG INJ) 5 units TIDAC SQ 02/24/17 17:00 (D50w (Vial) Inj) 50 ml UNSCH PRN IV PUSH 02/24/17 16:00 (Glucagon Inj) 1 mg UNSCH PRN OTHER 02/24/17 16:00 (NovoLOG SUPPLEMENTAL SCALE) 1 ACHS SLIDING SCALE SQ 02/24/17 17:00 02/24/17 20:48 (Ativan) 1 mg Q6H PRN PO 02/24/17 16:00 (Ativan Inj) 1 mg Q6H PRN IM 02/24/17 16:00 (Benadryl) 50 mg HS PRN PO 02/24/17 16:00 (Tylenol) 650 mg Q4H PRN PO 02/24/17 16:00 (Milk Of Magnesia Liq) 30 ml DAILY PRN PO 02/24/17 16:00 (Mag-Al Plus Susp Liq) 30 ml Q6H PRN PO 02/24/17 16:00 (Habitrol 21 Mg Patch.24 Hr) 1 patch DAILY PRN T-DERMAL 02/24/17 16:00 (Cogentin) 1 mg Q12H PRN PO 02/24/17 16:00 (Cogentin Inj) 1 mg Q12H PRN IM 02/24/17 16:00 Miscellaneous Information 1 DAILY T-DERMAL 02/25/17 09:00 (Levemir Inj) 10 units HS SQ 02/25/17 21:00 Family History Family history positive for diabetes mellitus Social History Patient denies using alcohol tobacco or drugs. Physical Exam Vital Signs Vital Signs Date Time Temp Pulse Resp B/P (MAP) Pulse Ox O2 Delivery O2 Flow Rate FiO2 02/25/17 06:14 97.3 85 16 108/60 (76) 100 02/24/17 15:11 98.3 95 20 125/67 (86) 98 Physical Exam GENERAL: This is a well-nourished, well-developed patient, in no apparent distress. SKIN: No rashes, ecchymoses or lesions. Warm and dry. HEAD: Atraumatic. Normocephalic. No temporal or scalp tenderness. EYES: Pupils equal round and reactive. No injection or drainage. ENT: Nose without bleeding, purulent drainage or septal hematoma. Airway patent. NECK: Trachea midline. No lymphadenopathy. Supple, nontender, no meningeal signs. CARDIOVASCULAR: Regular rate and rhythm without murmurs, gallops, or rubs. No JVD. RESPIRATORY: Clear to auscultation. Breath sounds equal bilaterally. No wheezes , rales, or rhonchi. GASTROINTESTINAL: Abdomen soft, non-tender, nondistended. No guarding. MUSCULOSKELETAL: Extremities without clubbing, cyanosis, or edema. NEUROLOGICAL: Awake and alert. Cranial nerves II through XII intact. No focal neurological deficits. Normal speech. Assessment and Plan Problem List: (1) Adjustment disorder ICD Code: F43.20 - Adjustment disorder, unspecified (2) Diabetes mellitus ICD Code: E11.9 - Type 2 diabetes mellitus without complications (3) Ulcerative colitis ICD Code: K51.90 - Ulcerative colitis, unspecified, without complications Assessment and Plan Mr. Soto is a 21-year-old male with a history of ulcerative colitis, diabetes mellitus who underwent DKA treatment and subsequently was transferred to inpatient psych within [place]. He remains under Servin act at this point. - Ulcerative colitis - Patient takes sulfasalazine 3 times a day. We'll continue sulfasalazine 500 mg 3 times a day before meals. - Diabetes mellitus type 1 - Morning blood glucose 138. Goal blood glucose while inpatient 140 - 180. - Continue Levemir 10 units daily at bedtime. Pre-meal insulin 3 units 3 times a day before meals. - Continue sliding scale insulin. - Adjustment disorder - management per psychiatric team. Full code. Ambulation for DVT prophylaxis. Thank you for the consult. We'll continue to follow this patient with you. Bud Zaman DO Feb 25, 2017 8:37 am
[2017-02-25] MEDS: REMOVE OLD PATCH T-DERMAL SCH (08:57)
[2017-02-25] MEDS ORDERED: sulfaSALAzine 500 MG TAB PO SCH (09:00)
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
--- NOTE | 2017-02-25 11:36 | PD.PSY.CON ---
Provisional Diagnosis Admission Date Feb 24, 2017 at 14:21 [place] I. Major depressive disorder, single episode, severe with psychotic features History of Present Illness Service Psychiatry Consult Requested By Dr. Garcia Reason for Consult Second opinion Primary Care Physician Unknown HPI Patient is a 21-year-old Afro-[place] man, single, domiciled with mother and siblings, unemployed on [facility] with a previous psychiatric history of depression, PTSD as per chart, no prior psychiatric hospitalizations or suicide attempts, history of marijuana use, past medical history of diabetes (insulin-dependent), ulcerative colitis, who was brought in by mother due to patient having stopped his medications and will claimed having been healed by God which she threw away his insulin pump and was admitted for DKA subsequently transferred to the inpatient psychiatry unit for further evaluation and management. Patient is seen for second opinion today. He is a 21 years old man, single, his domiciled his mother and siblings in [place], unemployed, supported by [facility], with psychiatric history of PTSD, depression, he has history of cannabis use disorder, no previous psychiatric hospitalizations or suicidal attempts, he has medical history of diabetes type 1, who was brought to the hospital under the Servin act delusional and psychotic behavior. On psychiatric evaluation today the patient is oppositional, selectively mute, says that he is a talk until he sees his paper to be discharged back home. Patient has a prominent flat affect, blocking thought, his is to be paranoid and internally preoccupied. Review of Systems Except as stated in HPI: all other systems reviewed are Neg Past Family Social History Coded Allergies: No Known Allergies (Verified Allergy, Unknown, 02/22/17) Active Scripts Insulin Aspart Inj (Novolog Inj) 1,000 Unit/10 Ml Vial, 1-9 UNITS SQ ACHS for Blood Sugar Management, #10 ML 0 Refills Max dose at bedtime:( )units; sugars less than 70,(0)units; sugars 150-199,(1) unit; sugars 200-249,(3) units; sugars 250-299,(5) units; sugars 300-349,(7) units; sugars greater than 349,(9) units Prov:Bud Zaman DO 02/23/17 Insulin Detemir Inj (Levemir Inj) 1,000 unit/ 10 ML Vial, 10 UNITS SQ Q12HR for Blood Sugar Management for 30 Days, INJECTION Do not mix with any other Insulin. Prov:Bud Zaman DO 02/23/17 Insulin Aspart Inj (Novolog Inj) 1,000 Unit/10 Ml Vial, 5 UNITS SQ TIDAC for Blood Sugar Management for 30 Days, INJECTION Prov:Bud Zaman DO 02/23/17 Reported Medications Omeprazole Magnesium (Prilosec) 10 Mg Pow, PO DAILY Y for REFLUX 02/22/17 Sulfasalazine (Sulfasalazine) 500 Mg Tab, 500 MG PO DAILY, #120 TAB 0 Refills 02/22/17 Discontinued Reported Medications [Novolog] (Novolog) No Conflict Check, UNIT SQ 02/22/17 Current Medications Medications (Trade) Dose Ordered Sig/Baldev Route Start Time Stop Time Status Last Admin (D50w (Vial) Inj) 50 ml UNSCH PRN IV PUSH 02/24/17 16:00 (Glucagon Inj) 1 mg UNSCH PRN OTHER 02/24/17 16:00 (NovoLOG SUPPLEMENTAL SCALE) 1 ACHS SLIDING SCALE SQ 02/24/17 17:00 02/24/17 20:48 (Ativan) 1 mg Q6H PRN PO 02/24/17 16:00 (Ativan Inj) 1 mg Q6H PRN IM 02/24/17 16:00 (Benadryl) 50 mg HS PRN PO 02/24/17 16:00 (Tylenol) 650 mg Q4H PRN PO 02/24/17 16:00 (Milk Of Magnesia Liq) 30 ml DAILY PRN PO 02/24/17 16:00 (Mag-Al Plus Susp Liq) 30 ml Q6H PRN PO 02/24/17 16:00 (Habitrol 21 Mg Patch.24 Hr) 1 patch DAILY PRN T-DERMAL 02/24/17 16:00 (Cogentin) 1 mg Q12H PRN PO 02/24/17 16:00 (Cogentin Inj) 1 mg Q12H PRN IM 02/24/17 16:00 Miscellaneous Information 1 DAILY T-DERMAL 02/25/17 09:00 (Levemir Inj) 10 units HS SQ 02/25/17 21:00 (Azulfidine) 500 mg TIDAC PO 02/25/17 12:00 (NovoLOG INJ) 3 units TIDAC SQ 02/25/17 12:00 (SEROquel) 50 mg BID PO 02/25/17 12:00 Social History Patient lives in [place] with his mother Physical Exam Vital Signs Vital Signs Date Time Temp Pulse Resp B/P (MAP) Pulse Ox O2 Delivery O2 Flow Rate FiO2 02/25/17 06:14 97.3 85 16 108/60 (76) 100 I/O 02/25/17 02/25/17 02/26/17 08:00 16:00 00:00 Intake Total 0 ml Balance 0 ml Mental Status Examination Appearance: Dirty, Disheveled Consciousness: Alert Orientation: x4 Motor Activity: Abnormal gait Speech: Hesitant, Slow Language: Adequate Fund of Knowledge: Adequate Attention and Concentration: Adequate Memory: Unremarkable Mood: Oppositional Affect: Flat Thought Process & Associations: Goal directed Thought Content: Thought blocking Suicidal Ideation: No Suicidal Plan: No Suicidal Intention: No Homicidal Ideation: No Homicidal Plan: No Homicidal Intention: No Insight: Poor Judgment: Poor Assessment & Plan Problem List: (1) Major depressive disorder, single episode, severe with psychotic features ICD Codes: F32.3 - Major depressive disorder, single episode, severe with psychotic features Assessment & Plan: I have seen and examined this patient, reviewed the documentation, discussed the case with Dr. Garcia, I agree and concur with his assessment and plan. Assessment & Plan Estimated LOS: Arun Rojas MD Feb 25, 2017 11:36
[2017-02-25] MEDS: sulfaSALAzine 500 MG TAB PO SCH ×2 (12:00→17:00)
[2017-02-25] MEDS ORDERED: QUEtiapine FUMARATE 25 MG TAB PO SCH (12:00)
--- NOTE | 2017-02-25 13:14 | PD.TTN ---
Patient Problems 1. Discharge planning 2. Medication compliance 3. Knowledge deficit 4. Lack of coping skills Progress Toward Goals Provider Present: Dr. Phil Garcia Provider Input: Per doctor, patient is presenting depressed, withdrawn, medication will be initiated to treat psychosis and depressive feature/mood. 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
[2017-02-25 18:03] VITALS: BP 114/71; PULSE 112; RESP 16; TEMP 97.4; O2SAT 99
[2017-02-25] MEDS ORDERED: INSULIN DETEMIR 100 UNITS/ML VIAL SQ SCH (21:00)
[2017-02-26 06:04] VITALS: BP 105/57; PULSE 73; RESP 18; TEMP 97.9; O2SAT 98
--- NOTE | 2017-02-26 08:54 | HHI.PYPN ---
Subjective Remarks Patient seen for follow-up, chart reviewed. Discussion with nursing staff reported the patient refused to eat yesterday during the day but had a meal late in the evening last night. Patient's glucose continues to be elevated, patient refused insulin yesterday. It was also reported the patient had urinated on himself yesterday as well. Patient found lying in hospital bed, superficially cooperative interview today. Patient states that he is feeling "okay", reports having been visited by his mother yesterday. Patient reports sleeping well, but states that he had difficulty with trying to get what he wanted to yesterday. Patient noted to be guarded but was able to speak about him feeling depressed for the past year but stated that had been starting to get better but when asked how things have been getting better he was unable to provide an answer. Patient states that his stresses include him trying to do things for the family at home as well as having his mother impede him on trying to accomplish getting a job will continue his education. He states that his brother deals with depression and has a result in part due to relationship with his mother. Patient states that he is unable to move forward in terms of wanting to move out of the house, of acquiring a job and mentions his mother having sabotaged some interviews when he was trying to acquire one. Patient states that he feels he does not have any supported by his family. When asked about recent events of his episodes with DKA recently (2 consecutive episodes) he states that the last time was a result of him feeling "lazy to get up and eat " in the morning after he had removed his insulin pump overnight. Review of Systems Except as stated in HPI: all other systems reviewed are Neg Mental Status Examination Appearance: Appropriate Consciousness: Alert Orientation: Person, Place, Date/Time Motor Activity: Abnormal gait Speech: Slow, Other (speech latency, low volume) Language: Adequate Fund of Knowledge: Inadequate Attention and Concentration: Inadequate Memory: Unremarkable Mood: Sad Affect: Flat Thought Process & Associations: Linear Thought Content: Delusional Hallucination Type: None Delusion Type: Other (God has healed him) Suicidal Ideation: No Suicidal Plan: No Suicidal Intention: No Homicidal Ideation: No Homicidal Plan: No Homicidal Intention: No Insight: Poor Judgment: Poor Results Vitals/IOs Vital Signs Date Time Temp Pulse Resp B/P (MAP) Pulse Ox O2 Delivery O2 Flow Rate FiO2 11/28/17 06:04 97.9 73 18 105/57 (95) 98 Assessment & Plan Problem List: (1) Major depressive disorder, single episode, severe with psychotic features ICD Codes: F32.3 - Major depressive disorder, single episode, severe with psychotic features Assessment & Plan Patient at this time continues to be noted to be superficial cooperative, guarded, flat affect, noted to have some psychomotor retardation, appearing to have some thought blocking. Patient continues to be concerned the patient due to current depression has impeded his ability to care for self and make appropriate decisions in his self-care (i.e. continuing insulin treatment for his diabetes) which had led him to have 2 relatively consecutive episodes of DKA with recent statements of God he having healed him by his prayer as well as current clinical presentation. Patient's mother was requested to be healthcare surrogate which at this time disagrees with having patient started on any psychiatric medications as well as requesting the patient discharged. Treatment team will have a conference phone call with mother today to explain patient's current legal status as well as obtain collateral information. Continue recommendations as per primary medical team. Discharge planning in progress Justification for Cont. Inpt. At risk for further decompensation if at lower level of care Discharge Planning Patient to be discharged back to his mother's residence once psychiatrically stable Kalyan Garcia MD Feb 26, 2017 08:54
[2017-02-26] MEDS: REMOVE OLD PATCH T-DERMAL SCH (09:00)
[2017-02-26] MEDS: sulfaSALAzine 500 MG TAB PO SCH ×3 (10:05→17:23)
[2017-02-26] MEDS: INSULIN ASPART SUPPLEMENTAL SCALE SQ SCH ×4 (10:07→22:55)
[2017-02-26 10:19] LABS: LDL CHOLESTEROL 155 MG/DL (0-99)
--- NOTE | 2017-02-26 10:20 | HHI.PR ---
Subjective Remarks Follow up for DM type 1. Patient is currently doing well. Denies any chest pain , shortness of breath, fever, chills. He is accepting some insulin and refusing some. I was requested to call patient's mother. She is concerned that he may have brain damage due to DKA and would like to see if MRI brain can be done. She is also concerned about geographic information systems analyst hypoglycemia and asks why we are not checking his blood glucose in the geographic information systems analyst hours. Patient has not had any hypoglycemic episodes or symptoms. Objective Vitals Vital Signs Date Time Temp Pulse Resp B/P (MAP) Pulse Ox O2 Delivery O2 Flow Rate FiO2 02/26/17 06:04 97.9 73 18 105/57 (73) 98 02/25/17 18:03 97.4 112 16 114/71 (85) 99 I/O 02/25/17 02/25/17 02/25/17 02/26/17 02/26/17 02/26/17 07:00 15:00 23:00 07:00 15:00 23:00 Intake Total 0 ml 840 ml Balance 0 ml 840 ml Intake Oral 0 ml 840 ml # Voids 1 1 2 # Bowel Movements 0 Objective Remarks GENERAL: Alert, oriented 3, NAD. Somewhat flat affect. SKIN: Warm and dry. HEAD: Normocephalic. EYES: No scleral icterus. No injection or drainage. NECK: Supple, trachea midline. No JVD or lymphadenopathy. CARDIOVASCULAR: Regular rate and rhythm without murmurs, gallops, or rubs. RESPIRATORY: Breath sounds equal bilaterally. No accessory muscle use. GASTROINTESTINAL: Abdomen soft, non-tender, nondistended. MUSCULOSKELETAL: No cyanosis, or edema. BACK: Nontender without obvious deformity. No CVA tenderness. Procedures None A/P Problem List: (1) Adjustment disorder ICD Code: F43.20 - Adjustment disorder, unspecified (2) Diabetes mellitus ICD Code: E11.9 - Type 2 diabetes mellitus without complications (3) Ulcerative colitis ICD Code: K51.90 - Ulcerative colitis, unspecified, without complications Assessment and Plan Mr. Soto is a 21-year-old male with a history of ulcerative colitis, diabetes mellitus who underwent DKA treatment and subsequently was transferred to inpatient psych within [facility]. - Ulcerative colitis - Patient takes sulfasalazine 3 times a day. We'll continue sulfasalazine 500 mg 3 times a day before meals. - Diabetes mellitus type 1 - Morning blood glucose 222. Goal blood glucose while inpatient 140 - 180. - Continue Levemir 13 units daily at bedtime. Pre-meal insulin 3 units 3 times a day before meals. - Continue sliding scale insulin. - No episodes of hypoglycemia or any hypoglycemia related symptoms to indicate patient is having any geographic information systems analyst hypoglycemic episodes. - Adjustment disorder - management per psychiatric team. - Other - I discussed with patient's mother who is concerned about geographic information systems analyst hypoglycemic episodes as well as some form of brain damage due to DKA. She is wondering why we have not done any CT can of MRI of the brain. - Patient has no focal neurological deficits to indicate any further workup. - I would advise counseling in addition to psychiatric evaluation with regards to patient's behavior and refusal to take insulin Full code. Ambulation for DVT prophylaxis. I discussed with Dr. Lizzeth Cuba (Patient's co chairman) at length around 12:30PM. Dr. Cuba does not believe patient's refusal to take insulin would have anything to do with neurological problems. Patient does not have any focal neurological deficits. I reviewed patient's DKA management with Dr. Cuba and informed her that lowest blood glucose was 94 while patient was in the ICU. We both agreed that there is no need for any imaging studies. I also discussed with Dr. Cuba with regards to blood glucose check at 3AM. Patient does not have any symptoms of hypoglycemia, he is on smaller dose of Levemir compared to his home dose. Thus, we both agreed that there is no need to check blood glucose at 3MA. We will continue to check ACHS. Additionally, Dr. Cuba recommended increasing pre-meal insulin from 3 units to 5 units TIDAC which I have already done. At this point, from medical standpoint, there is nothing else to offer. Based on patient's previous non-compliance behavior and his belief that God is healing him, I would request psychiatry to consider medications for Schizophrenia if it is appropriate. I would also advise outpatient counselling. Patient can be discharged from medical standpoint with outpatient follow up with his Punchboard Stuffer and PCP. Bud Zaman DO Feb 26, 2017 10:20
[2017-02-26 10:30] LABS: AUTOMATED NEUTROPHIL # 4.6 TH/MM3 (1.8-7.7); BASOPHIL % 0.5 % (0.0-2.0); EOSINOPHIL # 0.2 TH/MM3 (0-0.4); HEMO FLAGS DIFF FINAL; LYMPH % 23.5 % (9.0-44.0); LYMPHOCYTE # 1.7 TH/MM3 (1.0-4.8); MEAN CELL VOLUME 84.9 FL (80.0-100.0); MEAN CORPUSCULAR HEMOGLOBIN 28.8 PG (27.0-34.0); MEAN CORPUSCULAR HGB CONC 33.9 % (32.0-36.0); MONO % 8.5 % (0.0-8.0); NEUT % 64.5 % (16.0-70.0); PLATELET COUNT 226 TH/MM3 (150-450); RED BLOOD COUNT 5.77 MIL/MM3 (4.50-5.90); RED CELL DISTRIBUTION WIDTH 13.5 % (11.6-17.2); WHITE BLOOD COUNT 7.2 TH/MM3 (4.0-11.0)
[2017-02-26 10:53] LABS: BICARBONATE 23.5 MEQ/L (21.0-32.0)
[2017-02-26] MEDS ORDERED: INSULIN ASPART 1,000 UNITS/10 ML VIAL SQ SCH (12:00)
--- NOTE | 2017-02-26 15:42 | RADRPT ---
EXAM DATE/TIME: 02/26/2017 14:58 [facility] COMPARISON: No previous studies available for comparison. INDICATIONS : Psychosis. RADIATION DOSE: 35.41 CTDIvol (mGy) MEDICAL HISTORY : Diabetes mellitus type 2. SURGICAL HISTORY : Insulin pump. ENCOUNTER: Initial ACUITY: 1 day PAIN SCALE: 0/10 LOCATION: cranial TECHNIQUE: Multiple contiguous axial images were obtained of the head. Using automated exposure control and adj ustment of the mA and/or kV according to patient size, radiation dose was kept as low as reasonably a chievable to obtain optimal diagnostic quality images. DICOM format image data is available electro nically for review and comparison. FINDINGS: CEREBRUM: The ventricles are normal for age. No evidence of midline shift, mass lesion, hemorrhage or acute in farction. No extra-axial fluid collections are seen. POSTERIOR FOSSA: The cerebellum and brainstem are intact. The 4th ventricle is midline. The cerebellopontine angle i s unremarkable. EXTRACRANIAL: The visualized portion of the orbits is intact. SKULL: The calvaria is intact. No evidence of skull fracture. CONCLUSION: Normal examination. Song Arteaga MD on February 26, 2017 at 15:38 Board Certified Radiologist. This report was verified electronically.
[2017-02-26] MEDS: INSULIN ASPART 1,000 UNITS/10 ML VIAL SQ SCH (17:00)
[2017-02-26 17:17] LABS: HEMOGLOBIN A1b 2.1 %; HEMOGLOBIN Ao 80.6 %; HEMOGLOBIN LA1C 3.2 %; HEMOGLOBIN P3 4.8 %
[2017-02-26 18:18] VITALS: BP 119/59; PULSE 101; RESP 20; TEMP 98.1; O2SAT 97
[2017-02-26 19:52] VITALS: BP 119/59; PULSE 101; RESP 20; TEMP 98.1; O2SAT 97
[2017-02-26] MEDS: INSULIN DETEMIR 100 UNITS/ML VIAL SQ SCH (22:56)
[2017-02-27 05:00] VITALS: BP 101/61; PULSE 87; RESP 20; TEMP 97.2; O2SAT 99
[2017-02-27] MEDS: sulfaSALAzine 500 MG TAB PO SCH ×3 (08:00→17:00)
[2017-02-27] MEDS: INSULIN ASPART SUPPLEMENTAL SCALE SQ SCH ×4 (08:00→22:40)
[2017-02-27] MEDS: REMOVE OLD PATCH T-DERMAL SCH (09:00)
--- NOTE | 2017-02-27 09:00 | HHI.PR ---
Subjective Remarks Follow-up regarding uncontrolled diabetes Patient needs to take his diabetic medication and insulin or he will be right back in the hospital back in DKA No new complaints Seen ambulating around the psychiatric unit Objective Vitals Vital Signs Date Time Temp Pulse Resp B/P (MAP) Pulse Ox O2 Delivery O2 Flow Rate FiO2 02/27/17 05:00 97.2 87 20 101/61 (74) 99 02/26/17 19:52 98.1 101 20 119/59 (79) 97 02/26/17 18:18 98.1 101 20 119/59 (79) 97 I/O 02/26/17 02/26/17 02/26/17 02/27/17 02/27/17 02/27/17 07:00 15:00 23:00 07:00 15:00 23:00 Intake Total 480 ml 360 ml 480 ml Balance 480 ml 360 ml 480 ml Intake Oral 480 ml 360 ml 480 ml # Voids 2 3 Result Diagram: 02/26/17 0936 02/26/17 0936 Other Results Laboratory Tests Test 02/26/17 09:36 White Blood Count 7.2 TH/MM3 Red Blood Count 5.77 MIL/MM3 Hemoglobin 16.6 GM/DL Hematocrit 49.0 % Mean Corpuscular Volume 84.9 FL Mean Corpuscular Hemoglobin 28.8 PG Mean Corpuscular Hemoglobin Concent 33.9 % Red Cell Distribution Width 13.5 % Platelet Count 226 TH/MM3 Mean Platelet Volume 9.5 FL Neutrophils (%) (Auto) 64.5 % Lymphocytes (%) (Auto) 23.5 % Monocytes (%) (Auto) 8.5 % Eosinophils (%) (Auto) 3.0 % Basophils (%) (Auto) 0.5 % Neutrophils # (Auto) 4.6 TH/MM3 Lymphocytes # (Auto) 1.7 TH/MM3 Monocytes # (Auto) 0.6 TH/MM3 Eosinophils # (Auto) 0.2 TH/MM3 Basophils # (Auto) 0.0 TH/MM3 CBC Comment DIFF FINAL Differential Comment Blood Urea Nitrogen 15 MG/DL Creatinine 1.05 MG/DL Random Glucose 272 MG/DL Calcium Level 9.7 MG/DL Sodium Level 136 MEQ/L Potassium Level 4.0 MEQ/L Chloride Level 101 MEQ/L Carbon Dioxide Level 23.5 MEQ/L Anion Gap 12 MEQ/L Estimat Glomerular Filtration Rate 109 ML/MIN Hemoglobin A1c 7.6 % Triglycerides Level 100 MG/DL Cholesterol Level 228 MG/DL LDL Cholesterol 155 MG/DL HDL Cholesterol 53.0 MG/DL Cholesterol/HDL Ratio 4.30 RATIO B-Hydroxybutyrate 2.68 MMOL/L Imaging Last Impressions Head CT 02/26/17 0000 Signed Impressions: Service Date/Time: Sunday, February 26, 2017 14:58 - CONCLUSION: Normal examination. Song Arteaga MD Objective Remarks GENERAL: Awake alert talkative and cooperative SKIN: Warm and dry. HEAD: Atraumatic. Normocephalic. EYES: Pupils equal and round. No scleral icterus. No injection or drainage. Extraocular muscles intact ENT: No nasal bleeding or discharge. Mucous membranes pink and moist. tongue is midline NECK: Trachea midline. No JVD. Supple CARDIOVASCULAR: Regular rate and rhythm. S1 and S2 no S3 or S4 RESPIRATORY: No accessory muscle use. Clear to auscultation. Breath sounds equal bilaterally. GASTROINTESTINAL: Abdomen soft, non-tender, nondistended. Hepatic and splenic margins not palpable. MUSCULOSKELETAL: Extremities without clubbing, cyanosis, or edema. No obvious deformities. NEUROLOGICAL: Awake and alert. No obvious cranial nerve deficits. Motor grossly within normal limits. Five out of 5 muscle strength in the arms and legs. Normal speech. PSYCHIATRIC: INAppropriate mood and affect; insight and judgment ABnormal. Procedures None Medications and IVs Current Medications Sulfasalazine (Azulfidine) 500 mg DAILY PO ; Start 02/25/17 at 09:00; Stop at 09:54; Status DC Insulin Aspart (NovoLOG INJ) 5 units TIDAC SQ ; Start 02/24/17 at 17:00; Stop 02/25/17 at 10:00; Status DC Insulin Detemir (Levemir Inj) 10 units BID SQ Last administered on 02/24/17t 20:48; Start 02/24/17 at 21:00; Stop 02/25/17 at 08:14; Status DC Dextrose (D50w (Vial) Inj) 50 ml UNSCH PRN IV PUSH HYPOGLYCEMIA-SEE COMMENTS; Start 02/24/17 at 16:00 Glucagon (Glucagon Inj) 1 mg UNSCH PRN OTHER HYPOGLYCEMIA-SEE COMMENTS; Start 02/24/17 at 16:00 Insulin Aspart (NovoLOG SUPPLEMENTAL SCALE) 1 ACHS SLIDING SCALE SQ Last administered on 02/26/17 22:55; Start 02/24/17 at 17:00 Lorazepam (Ativan) 1 mg Q6H PRN PO MODERATE TO SEVERE ANXIETY; Start 02/24/17 at 16:00 Lorazepam (Ativan Inj) 1 mg Q6H PRN IM MODERATE TO SEVERE ANXIETY; Start 02/24 at 16:00 Diphenhydramine HCl (Benadryl) 50 mg HS PRN PO INSOMNIA; Start 02/24/17 at 16: 00 Acetaminophen (Tylenol) 650 mg Q4H PRN PO Pain 1-5 or Temp >101F; Start at 16:00 Magnesium Hydroxide (Milk Of Magnesia Liq) 30 ml DAILY PRN PO CONSTIPATION; Start 02/24/17 at 16:00 Al Hydrox/Mg Hydrox/Simethicone (Mag-Al Plus Susp Liq) 30 ml Q6H PRN PO DYSPEPSIA; Start 02/24/17 at 16:00 Nicotine (Habitrol 21 Mg Patch.24 Hr) 1 patch DAILY PRN T-DERMAL Nicotine craving; Start 02/24/17 at 16:00 Benztropine Mesylate (Cogentin) 1 mg Q12H PRN PO EXTRA PYRAMIDAL SYMPTOMS; Start 02/24/17 at 16:00 Benztropine Mesylate (Cogentin Inj) 1 mg Q12H PRN IM EXTRA PYRAMIDAL SYMPTOMS; Start 02/24/17 at 16:00 Miscellaneous Information 1 DAILY T-DERMAL ; Start 02/25/17 at 09:00 Insulin Detemir (Levemir Inj) 10 units HS SQ Last administered on 02/25/17 21 :06; Start 02/25/17 at 21:00; Stop 02/26/17 at 08:09; Status DC Sulfasalazine (Azulfidine) 500 mg TIDAC PO Last administered on 02/26/17 17: 23; Start 02/25/17 at 12:00 Insulin Aspart (NovoLOG INJ) 3 units TIDAC SQ ; Start 02/25/17 at 12:00; Stop 02/26/17 at 08:09; Status DC Quetiapine Fumarate (SEROquel) 50 mg BID PO ; Start 02/25/17 at 12:00; Status Future Hold Insulin Aspart (NovoLOG INJ) 4 units TIDAC SQ Last administered on 02/26/17 11:46; Start 02/26/17 at 12:00; Stop 02/26/17 at 12:49; Status DC Insulin Detemir (Levemir Inj) 13 units HS SQ Last administered on 02/26/17 22 :56; Start 02/26/17 at 21:00 Insulin Aspart (NovoLOG INJ) 5 units TIDAC SQ ; Start 02/26/17 at 17:00 A/P Problem List: (1) Adjustment disorder ICD Code: F43.20 - Adjustment disorder, unspecified (2) Diabetes mellitus ICD Code: E11.9 - Type 2 diabetes mellitus without complications (3) Ulcerative colitis ICD Code: K51.90 - Ulcerative colitis, unspecified, without complications Assessment and Plan Mr. Soto is a 21-year-old male with a history of ulcerative colitis, diabetes mellitus who underwent DKA treatment and subsequently was transferred to inpatient psych within [facility]. - Ulcerative colitis - Patient takes sulfasalazine 3 times a day. We'll continue sulfasalazine 500 mg 3 times a day before meals. - Diabetes mellitus type 1 - Morning blood glucose 222. Goal blood glucose while inpatient 140 - 180. - Continue Levemir 13 units daily at bedtime. Pre-meal insulin 3 units 3 times a day before meals. - Continue sliding scale insulin. 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 Monitor sugars adjust as necessary Has outpatient diabetic physician Dr. Cuba - Adjustment disorder - management per psychiatric team. Full code. Ambulation for DVT prophylaxis. Discharge Planning Pending psychiatric clearance Johann Omer DO Feb 27, 2017 09:00
[2017-02-27] MEDS: INSULIN ASPART 1,000 UNITS/10 ML VIAL SQ SCH ×3 (09:19→17:00)
--- NOTE | 2017-02-27 11:32 | HHI.PYPN ---
Subjective Remarks Patient seen for follow-up, chart reviewed. Discussion with nursing staff reported that patient had refused EEG yesterday, that cooperate with CT scan scan of the brain, has MRI scheduled for today and the patient yesterday Calling dietary service for food. Patient also noted to be paranoid, has delayed reaction with spoken to and appearing internally preoccupied. Patient found sitting in hospital chair in front of that she which she placed on the floor stated that he was about to meditate. He states that he recently started meditating after he had his first episode of DKA this year and when asked whatever medication he practiced he stated "can I see a menu?" Patient then states that meditation as a way "he will out" when asked about the evils that he is trying to get out patient did not respond but states "people need to change but was not able to expand on what he meant. Patient states that God has affected him in someway when he was a child but was not able to explain further what he meant he then mentions that he needs to stop medication about God. Throughout interview patient noted to be internally preoccupied, noted to be easily distracted, and appeared to be responding to internal stimuli. 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 Patient then mentioned that when he eloped from the hospital he ran "faster than normal when I ran across the highway" stating that he had an ability to run faster than normal. Patient noted to be disorganized and delusional as well as internally preoccupied. Review of Systems Except as stated in HPI: all other systems reviewed are Neg Mental Status Examination Appearance: Appropriate Consciousness: Alert Orientation: Person, Place, Date/Time Motor Activity: Abnormal gait Speech: Slow, Other (speech latency, low volume) Language: Adequate Fund of Knowledge: Inadequate Attention and Concentration: Inadequate Memory: Unremarkable Mood: Other ("fine") Affect: Flat, Other (appearing internally preoccupied) Thought Process & Associations: Loose associations, Disorganized, Tangential Thought Content: Bizarre thinking, Delusional Hallucination Type: None Delusion Type: Bizarre, Other (God has healed him) Suicidal Ideation: No Suicidal Plan: No Suicidal Intention: No Homicidal Ideation: No Homicidal Plan: No Homicidal Intention: No Insight: Poor Judgment: Poor Results Vitals/IOs Vital Signs Date Time Temp Pulse Resp B/P (MAP) Pulse Ox O2 Delivery O2 Flow Rate FiO2 02/27/17 05:00 97.2 87 20 101/61 (74) 99 Intake and Output 02/27/17 02/27/17 02/28/17 08:00 16:00 00:00 Intake Total 480 ml Balance 480 ml Assessment & Plan Problem List: (1) Unspecified psychosis ICD Codes: F29 - Unspecified psychosis not due to a substance or known physiological condition Assessment & Plan Patient at this time continues to to be noted to be internally preoccupied, endorsing bizarre paranoid delusions, and disorganized. He was initially considered patient to have mood symptoms that had psychotic features but due to recent observations the patient is likely that patient may have primary psychotic disorder which included differential diagnosis of first break psychosis, schizophrenia, schizoaffective disorder, brief psychotic disorder. It is unlikely that patient's current symptoms are due to delirium as patient is has been medically stable for the past couple of days. Patient's mother continues to refuse consent to treatment and therefore will be taken to mental health Court were petition will be reviewed by a mental health folder machine for retention as well as assignment of different healthcare surrogate such as an RONALD for treatment. Recent head CT was negative, pending MRI of the brain as well as EEG. Continue recommendations as per primary medical team. Discharge planning in progress Justification for Cont. Inpt. At risk for further decompensation if at lower level of care Discharge Planning Patient to return back to his mother's residence once psychiatrically stable Kalyan Garcia MD Feb 27, 2017 11:32
--- NOTE | 2017-02-27 12:48 | PD.TTN ---
Patient Problems 1. Discharge planning 2. Medication compliance 3. Knowledge deficit 4. Lack of coping skills Progress Toward Goals Provider Present: Dr. Phil Garcia Provider Input: Per doctor, patient is presenting depressed, withdrawn, medication will be initiated to treat psychosis and depressive feature/mood. 02/27/17 Patient will be going to court this 02/28/17, patient refused EEG, Doctor will encourage patient to receive EEG. Patien'ts mother feels patient's systoms are not psychiatric but medical due to patient's diabetes. Nurse(s) Present: HAYES Freeman Nurse(s) Input: Per RN patient is refusing insulin, and other medication Per patient's nurse patient paces about in his room and halls. Patient is slow to verbally respond, hestitant to answer. Manipulative and suspicious. Cooperative with care. Patient is medication compliant. Psychiatric Counselors Present: SUNDAY Miranda Psych Therapist Input: Counselor and healthcare administration internship student will review and establish treatment goals and plans with patient 02/27/17 Patient participates in group. Counselor will continue treatment plan and goals with patient to encourage compliance. Group Spec/RT/OT/MCDANIEL Present: VIOLETA Patterson, Ryan Ravi, OT Group Spec/RT/OT/MCDANIEL Input: Patient is new, he will be encouraged and introduced to unit groups and activities 02/27/17 Patient attends exercise groups, basketball, and meditation groups. Documentation Scribe: SUNDAY Miranda Elizabeth [facility] Feb 27, 2017 12:48
--- NOTE | 2017-02-27 18:14 | MG ---
cc: CJ CONNELLY MD Sex: M DATE OF STUDY: 02/27/2017 EEG. [id number] DATE OF : 1995 DESCRIPTION: 21-year-old, mental status changes, history of depression. Frequent eye movement blink artifact noted, posterior rhythm showing 8-10 Hz activity 20-50 microvolts, good EEG variability reactivity, constant eye movement. Reasonable driving with photic stimulation. Single lead EKG showing sinus rhythm. INTERPRETATION Significant continuous frontal eye movement artifact. However normal appearing EEG. Clinical correlation. Cj Connelly MD MG/CHRISTOPHER /4:41 PM /6:03 PM
[2017-02-27] MEDS: INSULIN DETEMIR 100 UNITS/ML VIAL SQ SCH (22:40)
[2017-02-28 06:15] VITALS: BP 103/57; PULSE 75; RESP 17; TEMP 97.6; O2SAT 99
[2017-02-28] MEDS: sulfaSALAzine 500 MG TAB PO SCH (08:00)
[2017-02-28] MEDS: INSULIN ASPART 1,000 UNITS/10 ML VIAL SQ SCH (08:00)
[2017-02-28] MEDS: INSULIN ASPART SUPPLEMENTAL SCALE SQ SCH (08:00)
[2017-02-28] MEDS: REMOVE OLD PATCH T-DERMAL SCH (09:00)
--- NOTE | 2017-02-28 09:49 | HHI.PR ---
Subjective Remarks Follow-up regarding uncontrolled diabetes Patient needs to take his diabetic medication and insulin or he will be right back in the hospital back in DKA No new complaints Seen ambulating around the psychiatric unit 02-28 EEG NEGATIVE FOR SEIZURE ACTIVITY NO NEW COMPLAINTS DW RN AND PT Objective Vitals Vital Signs Date Time Temp Pulse Resp B/P (MAP) Pulse Ox O2 Delivery O2 Flow Rate FiO2 02/28/17 06:15 97.6 75 17 103/57 (72) 99 I/O 02/27/17 02/27/17 02/27/17 02/28/17 02/28/17 02/28/17 07:00 15:00 23:00 07:00 15:00 23:00 Intake Total 480 ml 240 ml 720 ml 240 ml Balance 480 ml 240 ml 720 ml 240 ml Intake Oral 480 ml 240 ml 720 ml 240 ml # Voids 3 5 0 Result Diagram: 02/26/1736 02/26/17 0936 Other Results Laboratory Tests Test 02/26/17 09:36 White Blood Count 7.2 TH/MM3 Red Blood Count 5.77 MIL/MM3 Hemoglobin 16.6 GM/DL Hematocrit 49.0 % Mean Corpuscular Volume 84.9 FL Mean Corpuscular Hemoglobin 28.8 PG Mean Corpuscular Hemoglobin Concent 33.9 % Red Cell Distribution Width 13.5 % Platelet Count 226 TH/MM3 Mean Platelet Volume 9.5 FL Neutrophils (%) (Auto) 64.5 % Lymphocytes (%) (Auto) 23.5 % Monocytes (%) (Auto) 8.5 % Eosinophils (%) (Auto) 3.0 % Basophils (%) (Auto) 0.5 % Neutrophils # (Auto) 4.6 TH/MM3 Lymphocytes # (Auto) 1.7 TH/MM3 Monocytes # (Auto) 0.6 TH/MM3 Eosinophils # (Auto) 0.2 TH/MM3 Basophils # (Auto) 0.0 TH/MM3 CBC Comment DIFF FINAL Differential Comment Blood Urea Nitrogen 15 MG/DL Creatinine 1.05 MG/DL Random Glucose 272 MG/DL Calcium Level 9.7 MG/DL Sodium Level 136 MEQ/L Potassium Level 4.0 MEQ/L Chloride Level 101 MEQ/L Carbon Dioxide Level 23.5 MEQ/L Anion Gap 12 MEQ/L Estimat Glomerular Filtration Rate 109 ML/MIN Hemoglobin A1c 7.6 % Triglycerides Level 100 MG/DL Cholesterol Level 228 MG/DL LDL Cholesterol 155 MG/DL HDL Cholesterol 53.0 MG/DL Cholesterol/HDL Ratio 4.30 RATIO B-Hydroxybutyrate 2.68 MMOL/L Imaging Last Impressions Head CT 02/26/17 0000 Signed Impressions: Service Date/Time: Sunday, February 26, 2017 14:58 - CONCLUSION: Normal examination. Song Arteaga MD Objective Remarks GENERAL: Awake alert talkative and cooperative SKIN: Warm and dry. HEAD: Atraumatic. Normocephalic. EYES: Pupils equal and round. No scleral icterus. No injection or drainage. Extraocular muscles intact ENT: No nasal bleeding or discharge. Mucous membranes pink and moist. tongue is midline NECK: Trachea midline. No JVD. Supple CARDIOVASCULAR: Regular rate and rhythm. S1 and S2 no S3 or S4 RESPIRATORY: No accessory muscle use. Clear to auscultation. Breath sounds equal bilaterally. GASTROINTESTINAL: Abdomen soft, non-tender, nondistended. Hepatic and splenic margins not palpable. MUSCULOSKELETAL: Extremities without clubbing, cyanosis, or edema. No obvious deformities. NEUROLOGICAL: Awake and alert. No obvious cranial nerve deficits. Motor grossly within normal limits. Five out of 5 muscle strength in the arms and legs. Normal speech. PSYCHIATRIC: INAppropriate mood and affect; insight and judgment ABnormal. Procedures None Medications and IVs Current Medications Sulfasalazine (Azulfidine) 500 mg DAILY PO ; Start 02/25/17 at 09:00; Stop at 09:54; Status DC Insulin Aspart (NovoLOG INJ) 5 units TIDAC SQ ; Start 02/24/17 at 17:00; Stop 02/25/17 at 10:00; Status DC Insulin Detemir (Levemir Inj) 10 units BID SQ Last administered on 02/24/17 20:48; Start 02/24/17 at 21:00; Stop 02/25/17 at 08:14; Status DC Dextrose (D50w (Vial) Inj) 50 ml UNSCH PRN IV PUSH HYPOGLYCEMIA-SEE COMMENTS; Start 02/24/17 at 16:00 Glucagon (Glucagon Inj) 1 mg UNSCH PRN OTHER HYPOGLYCEMIA-SEE COMMENTS; Start 02/24/17 at 16:00 Insulin Aspart (NovoLOG SUPPLEMENTAL SCALE) 1 ACHS SLIDING SCALE SQ Last administered on 02/27/17 22:40; Start 02/24/17 at 17:00 Lorazepam (Ativan) 1 mg Q6H PRN PO MODERATE TO SEVERE ANXIETY; Start 02/24/17 at 16:00 Lorazepam (Ativan Inj) 1 mg Q6H PRN IM MODERATE TO SEVERE ANXIETY; Start 02/24 at 16:00 Diphenhydramine HCl (Benadryl) 50 mg HS PRN PO INSOMNIA; Start 02/24/17 at 16: 00 Acetaminophen (Tylenol) 650 mg Q4H PRN PO Pain 1-5 or Temp >101F; Start at 16:00 Magnesium Hydroxide (Milk Of Magnesia Liq) 30 ml DAILY PRN PO CONSTIPATION; Start 02/24/17 at 16:00 Al Hydrox/Mg Hydrox/Simethicone (Mag-Al Plus Susp Liq) 30 ml Q6H PRN PO DYSPEPSIA; Start 02/24/17 at 16:00 Nicotine (Habitrol 21 Mg Patch.24 Hr) 1 patch DAILY PRN T-DERMAL Nicotine craving; Start 02/24/17 at 16:00 Benztropine Mesylate (Cogentin) 1 mg Q12H PRN PO EXTRA PYRAMIDAL SYMPTOMS; Start 02/24/17 at 16:00 Benztropine Mesylate (Cogentin Inj) 1 mg Q12H PRN IM EXTRA PYRAMIDAL SYMPTOMS; Start 02/24/17 at 16:00 Miscellaneous Information 1 DAILY T-DERMAL ; Start 02/25/17 at 09:00 Insulin Detemir (Levemir Inj) 10 units HS SQ Last administered on 02/25/17 21 :06; Start 02/25/17 at 21:00; Stop 02/26/17 at 08:09; Status DC Sulfasalazine (Azulfidine) 500 mg TIDAC PO Last administered on 02/26/17 17: 23; Start 02/25/17 at 12:00 Insulin Aspart (NovoLOG INJ) 3 units TIDAC SQ ; Start 02/25/17 at 12:00; Stop 02/26/17 at 08:09; Status DC Quetiapine Fumarate (SEROquel) 50 mg BID PO ; Start 02/25/17 at 12:00; Status Future Hold Insulin Aspart (NovoLOG INJ) 4 units TIDAC SQ Last administered on 02/26/17 11:46; Start 02/26/17 at 12:00; Stop 02/26/17 at 12:49; Status DC Insulin Detemir (Levemir Inj) 13 units HS SQ Last administered on 02/27/17 22 :40; Start 02/26/17 at 21:00 Insulin Aspart (NovoLOG INJ) 5 units TIDAC SQ Last administered on 02/27/17 09:19; Start 02/26/17 at 17:00 A/P Problem List: (1) Adjustment disorder ICD Code: F43.20 - Adjustment disorder, unspecified (2) Diabetes mellitus ICD Code: E11.9 - Type 2 diabetes mellitus without complications (3) Ulcerative colitis ICD Code: K51.90 - Ulcerative colitis, unspecified, without complications Assessment and Plan Mr. Soto is a 21-year-old male with a history of ulcerative colitis, diabetes mellitus who underwent DKA treatment and subsequently was transferred to inpatient psych within [place]. - Ulcerative colitis - Patient takes sulfasalazine 3 times a day. We'll continue sulfasalazine 500 mg 3 times a day before meals. - Diabetes mellitus type 1 - Morning blood glucose 222. Goal blood glucose while inpatient 140 - 180. - Continue Levemir 13 units daily at bedtime. Pre-meal insulin 3 units 3 times a day before meals. - Continue sliding scale insulin. - No episodes of hypoglycemia or any hypoglycemia related symptoms to indicate patient is having any speeder frame tender hypoglycemic episodes. Monitor sugars adjust as necessary Has outpatient diabetic physician Dr. Cuba - Adjustment disorder - management per psychiatric team. EEG WAS NEGATIVE DW RN AND PATIENT Full code. Ambulation for DVT prophylaxis. Discharge Planning Pending psychiatric clearance Johann Omer DO Feb 28, 2017 09:49
[2017-02-28] MEDS ORDERED: LEVEMIR SQ (09:50)
[2017-02-28] MEDS ORDERED: NOVOLOGP2 SQ (09:50)
[2017-02-28] MEDS ORDERED: INSULIN PUMP (10:42)
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
== END 2017-02-28 10:55 | disposition home or self-care (01) | DRG 885 ==
LOC: H4EA 14:21
PROVIDERS: ADMIT Student in an Organized Health Care Education/Training Program; ATTEND Student in an Organized Health Care Education/Training Program
DX: F32.3 Major depressive disorder, single episode, severe with psychotic features (principal); K51.90 Ulcerative colitis, unspecified, without complications; F12.90 Cannabis use, unspecified, uncomplicated; F43.10 Post-traumatic stress disorder, unspecified; E10.9 Type 1 diabetes mellitus without complications; F43.20 Adjustment disorder, unspecified; Z62.810 Personal history of physical and sexual abuse in childhood; Z79.4 Long term (current) use of insulin; Z81.8 Family history of other mental and behavioral disorders; Z91.14 Patient's other noncompliance with medication regimen
CPT/HCPCS: 70450; 80048; 80061; 82010; 82948; 83036; 85025; 95819; J1815

== ENCOUNTER 2017-04-24 22:11 | Emergency (ER) | payer MEDICAID, OTHER ==
[~2017-04-24 22:11] MED LIST changes: +INSULIN PUMP
[2017-04-24] MEDS ORDERED: INSULIN HUMAN REGULAR 1,000 UNITS/10 ML VIAL IV PUSH ONE ×2 (22:30→23:45)
[2017-04-24] MEDS ORDERED: SODIUM CHLORIDE 0.9% FLUSH 10 ML FLUSH IVF PRN (22:30)
[2017-04-24 22:44] VITALS: BP 120/61; PULSE 105; RESP 16; TEMP 98.5; O2SAT 100
[2017-04-24] MEDS ORDERED: SODIUM CHLOR 0.9% 1000 ML INJ 1,000 ML IV ONE (22:45)
[2017-04-24 23:06] LABS: BILIRUBIN, URINE NEG (NEG); BLOOD, URINE NEG (NEG); GLUCOSE,URINE 1000 mg/dL (NEG); KETONE, URINE TRACE mg/dL (NEG); NITRITE,URINE NEG (NEG); PH, URINE 6.5 (5.0-8.5); URINE COLOR LIGHT-YELLOW (YELLW/STRAW); URINE LEUKOCYTE ESTERASE NEG (NEG)
[2017-04-24 23:12] LABS: AUTOMATED NEUTROPHIL # 9.8 TH/MM3 (1.8-7.7); BASOPHIL % 0.3 % (0.0-2.0); EOSINOPHIL # 0.1 TH/MM3 (0-0.4); EOSINOPHIL % 0.9 % (0.0-4.0); HEMATOCRIT 51.4 % (39.0-51.0); HEMOGLOBIN 16.9 GM/DL (13.0-17.0); LYMPH % 13.6 % (9.0-44.0); LYMPHOCYTE # 1.7 TH/MM3 (1.0-4.8); MEAN CELL VOLUME 87.4 FL (80.0-100.0); MEAN CORPUSCULAR HEMOGLOBIN 28.7 PG (27.0-34.0); MEAN CORPUSCULAR HGB CONC 32.8 % (32.0-36.0); MEAN PLATELET VOLUME 9.9 FL (7.0-11.0); MONO % 6.2 % (0.0-8.0); MONOCYTE # 0.8 TH/MM3 (0-0.9); PLATELET COUNT 254 TH/MM3 (150-450); RED BLOOD COUNT 5.89 MIL/MM3 (4.50-5.90); RED CELL DISTRIBUTION WIDTH 12.7 % (11.6-17.2); WHITE BLOOD COUNT 12.5 TH/MM3 (4.0-11.0)
[2017-04-24 23:20] LABS: ALBUMIN 4.1 GM/DL (3.4-5.0); ALT (GPT) 17 U/L (12-78); AST (GOT) 17 U/L (15-37); BICARBONATE 24.5 MEQ/L (21.0-32.0); BLOOD UREA NITROGEN 10 MG/DL (7-18); CALCIUM 8.5 MG/DL (8.5-10.1); CHLORIDE 99 MEQ/L (98-107); CREATININE 1.15 MG/DL (0.60-1.30); GLOMERULAR FILTRATION RATE 97 ML/MIN (>89); SODIUM (NA) 134 MEQ/L (136-145)
[2017-04-24 23:32] LABS: ALKALINE PHOSPHATASE 120 U/L (45-117); TOTAL BILIRUBIN ADULT 0.9 MG/DL (0.2-1.0); TOTAL PROTEIN 7.5 GM/DL (6.4-8.2)
[2017-04-24 23:35] LABS: GLUCOSE,RANDOM 618 MG/DL (74-106)
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
[2017-04-25 06:17] VITALS: BP 109/55; PULSE 96; RESP 16; O2SAT 99
[2017-04-25] MEDS ORDERED: INSULIN HUMAN REGULAR 1,000 UNITS/10 ML VIAL IV PUSH ONE (07:00)
[2017-04-25 11:00] VITALS: BP 106/76; PULSE 75; PULSE 87; RESP 18; O2SAT 100
--- NOTE | 2017-04-25 14:08 | PD ---
Physical Exam Time Seen by Provider: 14:06 OLIVA Gross has evaluated the patient, with Malathi howard, and cleared the patient for discharge. Data Data Last Documented VS Vital Signs Date Time Temp Pulse Resp B/P (MAP) Pulse Ox O2 Delivery O2 Flow Rate FiO2 04/25/17 06:17 96 16 109/55 (73) 99 Room Air 04/24/17 22:44 98.5 Orders Orders Complete Blood Count With Diff (04/24/17 22:28) Comprehensive Metabolic Panel (04/24/17 22:28) Thyroid Stimulating Hormone (04/24/17 22:28) Urinalysis - C+S If Indicated (04/24/17 22:28) Iv Access Insert/Monitor (04/24/17 22:28) Ecg Monitoring (04/24/17 22:28) Psych Screen (04/24/17 22:28) Sodium Chloride 0.9% Flush (Ns Flush) (04/24/17 22:30) Drug Screen, Random Urine (04/24/17 22:28) Insulin Human Regular Inj (Novolin R Inj (04/24/17 22:30) Sodium Chlor 0.9% 1000 Ml Inj (Ns 1000 M (04/24/17 22:45) Insulin Human Regular Inj (Novolin R Inj (04/24/17 23:45) Insulin Human Regular Inj (Novolin R Inj (04/25/17 07:00) Diet Diabetic (04/25/17 Breakfast) Diet Diabetic (04/25/17 Lunch) Ed Discharge Order (04/25/17 14:05) Labs Laboratory Tests Test 04/24/17 22:35 White Blood Count 12.5 TH/MM3 Red Blood Count 5.89 MIL/MM3 Hemoglobin 16.9 GM/DL Hematocrit 51.4 % Mean Corpuscular Volume 87.4 FL Mean Corpuscular Hemoglobin 28.7 PG Mean Corpuscular Hemoglobin Concent 32.8 % Red Cell Distribution Width 12.7 % Platelet Count 254 TH/MM3 Mean Platelet Volume 9.9 FL Neutrophils (%) (Auto) 79.0 % Lymphocytes (%) (Auto) 13.6 % Monocytes (%) (Auto) 6.2 % Eosinophils (%) (Auto) 0.9 % Basophils (%) (Auto) 0.3 % Neutrophils # (Auto) 9.8 TH/MM3 Lymphocytes # (Auto) 1.7 TH/MM3 Monocytes # (Auto) 0.8 TH/MM3 Eosinophils # (Auto) 0.1 TH/MM3 Basophils # (Auto) 0.0 TH/MM3 CBC Comment DIFF FINAL Differential Comment Urine Color LIGHT-YELLOW Urine Turbidity CLEAR Urine pH 6.5 Urine Specific [place] 1.022 Urine Protein NEG mg/dL Urine Glucose (UA) 1000 mg/dL Urine Ketones TRACE mg/dL Urine Occult Blood NEG Urine Nitrite NEG Urine Bilirubin NEG Urine Urobilinogen LESS THAN 2.0 MG/DL Urine Leukocyte Esterase NEG Urine RBC LESS THAN 1 /hpf Urine WBC 2 /hpf Microscopic Urinalysis Comment CULT NOT INDICATED Blood Urea Nitrogen 10 MG/DL Creatinine 1.15 MG/DL Random Glucose 618 MG/DL Total Protein 7.5 GM/DL Albumin 4.1 GM/DL Calcium Level 8.5 MG/DL Alkaline Phosphatase 120 U/L Aspartate Amino Transf (AST/SGOT) 17 U/L Alanine Aminotransferase (ALT/SGPT) 17 U/L Total Bilirubin 0.9 MG/DL Sodium Level 134 MEQ/L Potassium Level 4.2 MEQ/L Chloride Level 99 MEQ/L Carbon Dioxide Level 24.5 MEQ/L Anion Gap 11 MEQ/L Estimat Glomerular Filtration Rate 97 ML/MIN Thyroid Stimulating Hormone 3rd Gen 0.683 uIU/ML Urine Opiates Screen NEG Urine Barbiturates Screen NEG Urine Amphetamines Screen NEG Urine Benzodiazepines Screen NEG Urine Cocaine Screen NEG Urine Cannabinoids Screen NEG MDM Supervised Visit with CORY: No Narrative OLIVA Gatica has evaluated the patient, with Malathi howard, and cleared the patient for discharge. Patient contracts safety. Denies suicidal or homicidal ideations. Patient will be provided community resource packet to NICOLE for follow-up. Has friends and family for support. Patient was medically cleared by alternate provider prior to psych screening. Patient has been evaluated by psychiatry and and is now cleared for discharge. Diagnosis Primary Impression: Hyperglycemia Additional Impression: Adjustment disorder Qualified Codes: F43.20 - Adjustment disorder, unspecified Referrals: [facility] (Out patient) [facility] Primary Care Physician Psychiatrist Isabel HOWARD Behavioral Patient Instructions: Diabetic Hyperglycemia (ED), Disruptive Mood Dysregulation Disorder (ED), General Instructions, Mood Disorders (ED) Additional Instruction: Contract safety to your self and others Follow-up with psychiatry Follow-up with primary care provider Follow-up with Brandon Forman/ACT Return to the emergency department immediately with worsening of symptoms Med/Other Pt SpecificInfo: No Change to Meds, No Meds Exist/No RX given Disposition: 01 DISCHARGE HOME Condition: Stable Mary Simon Apr 25, 2017 14:08
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
== END 2017-04-25 14:44 | disposition home or self-care (01) ==
LOC: NEPE 22:11 → NEPD 04-25 14:44
DX: F43.20 Adjustment disorder, unspecified (principal); E11.65 Type 2 diabetes mellitus with hyperglycemia; F90.9 Attention-deficit hyperactivity disorder, unspecified type; F43.10 Post-traumatic stress disorder, unspecified; F32.9 Major depressive disorder, single episode, unspecified; Z91.14 Patient's other noncompliance with medication regimen; Z79.4 Long term (current) use of insulin; Z79.899 Other long term (current) drug therapy
CPT/HCPCS: 80053; 80307; 81001; 84443; 85025; 96361; 96374; 96375; 96376; 99284; J1815; J7030